=== PATIENT | male | born 1955 | race Caucasian/White ===

== ENCOUNTER 2016-07-13 07:12 | Outpatient (CLI) | payer OTHER ==
[~2016-07-13] VITALS: Ht 167.6 cm; Wt 50.0 kg
--- NOTE | ~2016-07-13 | HEMODYNAMI ---
PATIENT:MERVAT MARTINEZ MEDICAL RECORD: [id number] : 55 LOCATION:D[facility]ILIP ADMISSION DATE: 07/13/16 Generatedon:07/13/201610:30 Patient name: MERVAT MARTINEZ Patient #: [id number] : 1955 Date of study: 07/13/2016 Page: Of Hemodynamic Procedure Report Patient Data Patient Demographics Procedure consent was obtained First Name: MERVAT Gender: Male Last Name: JUAN : 1955 Patient #: [id number] Age: 60 year(s) Race: SSN: [id number] Additional ID: [id number] Contact details [address]: [address] [place] [address] ROAD State: [place] City: [place] Zip code: [address] Admission Admission Data Admission Date: 07/13/2016 Admission Time: 7:12 Arrival Date: 07/13/2016 Arrival Time: 9:30 Admit Source: Other Insurance Payor: Private health insurance Height (in.): 66 BSA: 1.55 (m2) Height (cm.): 167.64 BMI: 17.75 (kg/m2) Weight (lbs.): 110 Weight (kg.): 49.9 Lab Results Lab Result Date: 07/13/2016 Lab Result Time: 0:00 Biochemistry Name Units Result Min Max BUN mg/dl 13 --(--*-)-- 7 18 Creatinine mg/dl 0.9 --(-*--)-- 0.6 1.3 CBC Name Units Result Min Max Hemoglobin g/dl 15.7 --(--*-)-- 13.5 17.5 Procedure Procedure Types Cath Procedure Diagnostic Procedure [facility] w/Coronaries PCI Procedure Coronary Stent Initial Miscellaneous Procedures Moderate Sedation up to 45 minutes Procedure Description Procedure Date Procedure Date: 07/13/2016 Procedure Start Time: 9:59 Procedure End Time: 10:26 Procedure Staff Name Function Martin Rodriguez MD Performing Physician Ramón Gant RT Scrub Fernando Kruse RN Nurse Mayda Omer RT Monitor Procedure Data Cath Procedure Fluoroscopy Diagnostic fluoroscopy Total fluoroscopy Time: 6.9 time: 6.9 min min Diagnostic fluoroscopy Total fluoroscopy dose: 365 dose: 365 mGy mGy Contrast Material Contrast Material Type Amount (ml) Isovue 300 146 Entry Location Entry Primary Successful Side Size Upsize Upsize Entry Closure Figueroa ccessful Closure Location (Fr) 1 (Fr) 2 (Fr) Remarks Device Remarks Radial Right 6 Fr Mechanical artery Short Compression Estimated blood loss: 5 ml Diagnostic catheters Device Type Used For End Catheter Placement Terumo 5Fr Gerardo 110cm Multi-vessel catheter Angiography Procedure Complications No complications Procedure Medications Medication Administration Route Dosage Oxygen NC 2 l/min Heparin Flush Bag added to field 2 bags (1000units/500ml NS) 0.9% NaCl I.V. 100 ml/hr Radial Cocktail added to field 1 syringe (Verapomil 2mg/Nitro 400mcg/Heparin 1500units) Fentanyl I.V. 50 mcg Versed I.V. 1 mg Versed I.V. 1 mg Radial Cocktail I.A. 1 syringe (Verapomil 2mg/Nitro 400mcg/Heparin 1500units) Heparin Bolus I.V. 5000 units Plavix P.O. 600 mg Hemodynamics Rest BSA: 1.55 (m2) HGB: 15.7 (g/dl) O2 Consumption: Estimated: 180.3 (ml/min) O2 Con sumption indexed: Estimated:116.32 (ml/min/m) Heart Rate: 67 (bpm) Pressure Samples Time Site Value (mmHg) Purpose Heart Use Rate(bpm) 10:03 LV 71/-4,6 Snapshot 67 10:04 AO 64/37(46) Pullback 81 Gradients Valve Time Site Site 2 Mean SEP/DFP Peak To Heart Use 1 (mmHg) (sec/min) Peak Rate (mmHg) (bpm) Aortic 10:04 LV AO 4 44 81 64/37(46) Calculations Valve P-P Mean Valve Index Valve Source Name Gradient Area Flow (cm2) Aortic 4 4 Snapshots Pre Cath Intra NCS Post Cath Vital Signs Time Heart Resp SPO2 etCO2 [id number] NIBP Rhythm Pain Sedation Rate (ipm) (%) (mmHg) (mmHg) (mmHg) Status Level (bpm) 9:46:26 63 17 99 0 0 120/80(95) NSR 0 (11) 10(A) , No pain 9:50:32 65 17 100 0 0 91/69(79) NSR 0 (11) 10(A) , No pain 9:54:35 66 19 99 0 0 86/45(76) NSR 0 (11) 9(A) , No pain 9:58:35 72 18 99 0 0 84/52(68) NSR 0 (11) 9(A) , No pain 10:02:37 71 17 96 0 0 74/46(65) NSR 0 (11) 9(A) , No pain 10:06:36 73 18 95 0 0 69/40(57) NSR 0 (11) 9(A) , No pain 10:10:32 67 17 96 0 0 74/44(65) NSR 0 (11) 9(A) , No pain 10:14:29 68 17 95 0 0 82/43(64) NSR 0 (11) 9(A) , No pain 10:18:27 71 17 97 0 0 81/51(70) NSR 0 (11) 9(A) , No pain 10:22:22 67 18 98 0 0 90/56(66) NSR 0 (11) 9(A) , No pain 10:26:22 66 18 98 0 0 102/56(84) NSR 0 (11) 9(A) , No pain 10:28:23 67 18 98 0 0 97/59(73) NSR 0 (11) 9(A) , No pain Medications Time Medication Route Dose Verified Delivered Reason Note s Effectiveness by by 9:45:43 Oxygen NC 2 l/min Fernando King Per physician Uriah Kruse RN RN 9:45:52 Heparin Flush added 2 bags Fernando King used for Bag to Uriah Kruse RN procedure (1000units/500ml field RN NS) 9:46:03 0.9% NaCl I.V. 100 Fernando King Per physician ml/hr Uriah Kruse RN RN 9:46:16 Radial Cocktail added 1 Fernando King used for (Verapomil to syringe Uriah Kruse technical service representative 2mg/Nitro field RN 400mcg/Heparin 1500units) 9:52:27 Fentanyl I.V. 50 mcg Fernando King for sedation Uriah Kruse RN RN 9:52:34 Versed I.V. 1 mg Fernando King for sedation Uriah Kruse RN RN 10:00:58 Versed I.V. 1 mg Fernando King for sedation Uriah Kruse RN RN 10:01:54 Radial Cocktail I.A. 1 Fernando Salazar for (Verapomil syringe Uriah Rodriguez MD vasodilation 2mg/Nitro RN 400mcg/Heparin 1500units) 10:10:33 Heparin Bolus I.V. 5000 Fernando King for units Uriah Kruse RN anticoagulation RN 10:25:20 Plavix P.O. 600 mg Fernando King for Uriah Kruse RN antiplatelet RN therapy Procedure Log Time Note 9:30:55 Fernando Kruse RN sent for patient. Start room use. 9:40:17 Informed consent obtained and on chart 9:40:38 Diagnostic Cath Status : Elective 9:41:02 Time tracking: Regular hours 9:41:06 Plan of Care:Hemodynamics will remain stable., Cardiac rhythm will remain stable., Comfort level will be maintained., Respiratory function will remain adequate., Patient/ family verbilizes understanding of procedure., Procedure tolerated without complication., Recovers from procedure without complications.. 9:41:11 Patient received from Pre/Post Procedure Room to [facility] 1 Alert and oriented. Tansferred to table in Supine position. 9:41:11 Warm blankets applied, and lilia hugger turned on for patient comfort. 9:41:12 Correct patient and procedure confirmed by team. 9:41:12 ECG and BP/O2 sat monitors applied to patient. 9:45:18 Vital chart was started 9:45:43 Oxygen 2 l/min NC was administered by Fernando Kruse RN; Per physician; 9:45:52 Heparin Flush Bag (1000units/500ml NS) 2 bags added to field was administered by Fernando Kruse RN; used for procedure; 9:46:01 Rhythm: sinus rhythm 9:46:03 0.9% NaCl 100 ml/hr I.V. was administered by Fernando Kruse RN; Per physician; 9:46:03 Full Disclosure recording started 9:46:16 Radial Cocktail (Verapomil 2mg/Nitro 400mcg/Heparin 1500units) 1 syringe added to field was administered by Fernando Kruse RN; used for procedure; 9:46:34 H&P Date Dictated: 07/08/2016 Within 30 days and on chart., H&P Addendum completed by physician on day of procedure. (MUST COMPLETE FOR ALL OUTPATIENTS). 9:46:35 Pre-procedure instructions explained to patient. 9:46:35 Pre-op teaching completed and patient verbalized understanding. 9:46:36 Family in waiting room. 9:46:38 Patient NPO since Midnight. 9:46:39 Is the patient allergic to Iodine/contrast media? No. 9:46:40 Is patient on blood thinner?No 9:46:42 Patient diabetic? No. 9:46:44 Previous problem with sedation/anesthesia? No ? 9:46:45 Snore? Yes 9:46:46 Sleep apnea? No 9:46:47 Deviated septum? No 9:46:48 Opens mouth fully? Yes 9:46:49 Sticks out tongue? Yes 9:46:50 Airway obstruction? No ? 9:46:52 Dentures? No ? 9:46:54 Pre procedure: right dorsailis pedis pulse 1+ Palpable, but thready & weak; easily obliterated 9:46:58 Modified Rishi's test Ulnar < 7 seconds 9:47:01 Patient pain scale 0/10 ?. 9:47:05 IV patent on arrival in left forearm with 0.9% NaCl at O. 9:47:08 Lab results completed and on chart. 9:47:11 Right Radial & Right Groin area was prepped with chlora-prep and draped in sterile fashion 9:47:12 Alarms reviewed by R. N. 9:47:12 Sharps counted by scrub and verified by R.N. 9:51:32 Physician arrived 9:51:33 --------ALL STOP TIME OUT------ 9:51:33 Final Timeout: patient, procedure, and site verified with staff and physician. All members of the team are in agreement. 9:51:45 Right Radial & Left Groin site verified by team. 9:51:48 Physical assessment completed. ASA score P 2 - A patient with mild systemic disease as per aMrtin Rodriguez MD. 9:51:52 Sedation plan: IV Moderate Sedation Versed, Fentanyl 9:52:27 Fentanyl 50 mcg I.V. was administered by Fernando Kruse RN; for sedation; 9:52:34 Versed 1 mg I.V. was administered by Fernando Kruse RN; for sedation; 9:52:37 Cook 21G 4cm Radial Needle opened to sterile field. 9:52:40 Use device set Radial Dx 9:52:42 Acist Syringe opened to sterile field. 9:52:42 Medline Cath Pack opened to sterile field. 9:52:42 Bag Decanter opened to sterile field. 9:52:43 Terumo 6Fr Slender Glidesheath opened to sterile field. 9:52:43 St Ronnie 260cm J .035 wire opened to sterile field. 9:52:43 Acist Hand Control opened to sterile field. 9:52:44 Acist Manifold opened to sterile field. 9:52:44 Tegaderm 4 x 4 opened to sterile field. 9:52:44 MBrace Wrist Support opened to sterile field. 9:52:55 Admit Source: Other 9::59 Arrival Date: 07/13/2016 9:30:00 AM 9:53:21 Insurance Payor : Private health insurance 9:54:01 Patient Height : 66 cm 9:54:06 Patient Weight : 110 kg 9:56:41 Lab Result : Hemoglobin 15.7 g/dl 9:56:41 Lab Result : Creatinine 0.9 mg/dl 9:56:41 Lab Result : BUN 13 mg/dl 9:59:40 Procedure started. 9:59:51 Local anesthetic to right radial artery with Lidocaine 2% by Martin Rodriguez MD.INITIAL ACCESS ONLY 10:00:14 Zero performed for pressure channel P1 10:00:58 Versed 1 mg I.V. was administered by Fernando Kruse RN; for sedation; 10:01:07 A 6 Fr Short sheath was inserted into the Right Radial artery 10:01:23 Baseline sample Acquired. 10:01:54 Radial Cocktail (Verapomil 2mg/Nitro 400mcg/Heparin 1500units) 1 syringe I.A. was administered by Martin Rodriguez MD; for vasodilation; 10:02:49 A Terumo 5Fr Gerardo 110cm catheter was advanced over the wire and used for Multi-vessel Angiography. 10:03:40 LV hemodynamics recorded. 10:03:42 LV gram done using MILES 10:03:44 Injector settings: Ml/sec: 5, Volume: 15, 10:03:54 EF : 60 % 10:04:16 RCA angiography performed. 10:04:23 Injector settings: Ml/sec: 3, Volume: 6, 10:04:55 LCA angiography performed. 10:05:17 Injector settings: Ml/sec: 3, Volume: 6, 10:05:59 Catheter removed. 10:06:18 TabletKiosk 6FR XBLAD 3.5 guide catheter opened to sterile field. 10:06:18 [employer] BMW [place] 2 J-tip 300cm 0.014 guide wir opened to sterile field. 10:06:19 VeliQ BasixCompak Inflation Kit opened to sterile field. 10:06:25 High Pressure Extension Tubing ([place]) opened to sterile field. 10:06:28 Proceeding to intervention. 10:06:40 6 Fr xblad 3.5 guide catheter was inserted over the wire 10:09:17 bmw wire advanced. 10:10:33 Heparin Bolus 5000 units I.V. was administered by Fernando Kruse RN; for anticoagulation; 10:11:42 Wire advanced across lesion. 10:14:46 Inflation Number: 1 A Medtronic Integrity 2.75 X 18 stent was prepped and advanced across the Mid LAD. The stent was deployed at 14 ADRIA for 0:10 (min:sec). 10:17:22 Stent catheter was removed intact over wire. 10:19:16 Inflation Number: 2 A Medtronic Integrity 3.0 X 12 stent was prepped and advanced across the Mid LAD. The stent was deployed at 12 ADRIA for 0:10 (min:sec). 10:22:31 Inflation number: 3 The stent balloon was then re-inflated across the Mid LAD to 3 ADRIA for 0:10 (min:sec). 10:22:37 Stent catheter was removed intact over wire. 10:22:38 Wire removed. 10:22:38 Guide catheter removed. 10:22:52 Terumo TR Band Standard opened to sterile field. 10:23:10 Sheath removed intact; hemostasis achieved with Mechanical Compression to the Right Radial artery. 10:23:11 TR band inflated with 12cc of air. 10:23:12 Procedure ended.(Physican Out) 10:24:20 Fluoroscopy time 06.90 minutes. 10:24:42 Fluoroscopy dose: 365 mGy 10:24:42 Flurop Dose total: 365 10:24:51 Contrast amount:Isovue 300 146ml. 10:24:53 Sharps counted by scrub and verified by R.N. 10:24:54 Insertion/operative site no bleeding no hematoma. 10:25:00 Post right radial artery:stable 10:25:02 Post Procedure Pulses reassessed and unchanged 10:25:20 Plavix 600 mg P.O. was administered by Fernando Kruse RN; for antiplatelet therapy; 10:25:21 Post procedure rhythm: unchanged. 10:25:24 Estimated blood loss: 5 ml 10:25:26 Post procedure instruction explained to patient.Patient verbalizes understanding. 10:25:27 Patient needs reinforcement of post procedure teaching. 10:26:06 Procedure type changed to Cath procedure, Diagnostic procedure, LHC, LHC w/Coronaries, PCI procedure, Coronary Stent Initial, Miscellaneous Procedures, Moderate Sedation up to 45 minutes 10:26:07 Procedure and supply charges have been captured, reviewed, submitted and are correct. 10:26:11 Procedure Complication : No complications 10:26:13 Vital chart was stopped 10:26:14 See physician's report for complete and final results. 10:26:19 Report given to Pre/Post Procedure Room. 10:26:22 Patient transfered to Pre/Post Procedure Room with Stretcher. 10:26:24 Procedure ended. 10:26:24 Full Disclosure recording stopped 10:26:33 ACC-PCI Only Patient was given prescriptions, or instructed by Martin Rodriguez MD to start/continue the following medications upon discharge: Plavix 10:26:35 End room use (Document Last) Intervention Summary Intervention Notes Time ActionType Lesion and Equipment Action# Pressure Duration Attributes Used 10:14:46 Place stent Mid LAD Medtronic 1 14 00:10 Integrity 2.75 X 18 stent 10:19:16 Place stent Mid LAD Medtronic 2 12 00:10 Integrity 3.0 X 12 stent 10:22:31 Reinflate Mid LAD Medtronic 3 3 00:10 stent Integrity balloon 3.0 X 12 stent Device Usage Item Name Manufacture Quantity Catalog Hospital Part Current Minimal Lot# / Number Charge Number Stock Stock Serial# Code Freshplum 21G Firecomms 1 [id number] [id number] 457440 5 4cm Radial Needle Acist Acist 1 06086 419058 770101 581994 20 Syringe Medical Systems Inc Medline Cardinal 1 [id number] 191052 96023 405652 5 Cath Pack Health Bag Microtek 1 2002S 575507 41618 125554 5 Decanter Medical Inc. Terumo 6Fr Terumo 1 [id number] 523329 967853 194750 [address] St Ronnie 1 [id number] 149106 595963 473889 30 260cm J .035 wire Acist Hand Acist 1 12301 448753 018908 147127 5 Control Medical Systems Inc Acist Acist 1 68015 358543 736451 386579 5 Manifold Medical Systems Inc Tegaderm 4 3M 1 1626W 968204 230809 306055 5 x 4 MBrace Advanced 1 140-0250-00 446016 79412 589421 5 Wrist Vascular Support Dynamics Terumo 5Fr Terumo 1 89-5303 093601 248292 435199 5 Gerardo 110cm catheter Cordis 6FR Cardinal 1 [id number] 844300 306950 787404 10 XBLAD 3.5 Health guide catheter Neal BMW Neal 1 [id number] 139622 319937 780386 5 [place] 2 Vascular J-tip 300cm 0.014 guide wir Merit Merit 1 [id number] 946191 257381 812921 15 BasixLiquidPistonk Medical Inflation Kit High Merit 1 [id number] 301528 04646 752309 10 Pressure Medical Extension Tubing (Rodriguez) Medtronic Medtronic 1 [id number] 635225 668210 6 [id number] Integrity 2.75 X 18 stent Medtronic Medtronic 1 [id number] 813626 408778 8 [id number] Integrity 3.0 X 12 stent Terumo TR Terumo 1 [id number] 068986 757419 520659 40 Band Standard Signature Audit [place] Stage Time Signature Unsigned Intra-Procedure 07/13/2016 Mayda Omer 10:30:23 AM RT(R) Signatures Monitor : Mayda Omer RT Signature : Date : Time : [facility] [address] [place] [address]
--- NOTE | ~2016-07-13 | OP ---
PATIENT NAME: MERVAT MARTINEZ MEDICAL RECORD: [id number] :55 LOCATION:D.CAT ADMISSION DATE: SURGEON: ERIK GEE M.D. DATE OF OPERATION: 07/13/2016 PROCEDURES PERFORMED: 1. Selective coronary angiography. 2. Left heart catheterization with ventriculogram. 3. PTCA and stent placed in the LAD. INDICATION: A 60-year-old gentleman who presents with symptoms of unstable angina. REFERRING PHYSICIAN: Cheyenne Acosta MD. EQUIPMENT USED: A 5-Danish Gerardo catheter. INTERVENTION: A 6-Danish XB LAD guide, BMW guide wire, 3.0 x 12 mm Integrity stent, 2.75 x 18 mm Integrity stent. TECHNIQUE: A 6-Danish sheath was inserted in retrograde fashion in the right radial artery. Next, selective coronary angiography was performed in standard views using 5-Danish Gerardo catheter. Left heart catheterization was performed using Gerardo catheter as well. CORONARY ANATOMY: 1. Left main: Left main trunk is large in caliber. It gives rise to the LAD and circumflex. There is no obstruction. 2. LAD: This is a large caliber vessel extending to the apex. In the proximal segment beyond the first septal investment underwriter, there is an ulcerated 80% stenosis, which is quite hazy. 3. Circumflex: This vessel is large in caliber. The mid segment has a smooth 30% stenosis. 4. Right coronary: This vessel is large in caliber and dominant. It is angiographically normal. 5. Left ventricle: Left ventricle is normal size and function. No wall motion abnormalities are seen. Estimated ejection fraction is 60%. DESCRIPTION OF INTERVENTION: A 100 units per kilogram of heparin was infused. A 6-Danish XB LAD guide was advanced and engaged in the left main coronary artery. Next, a BMW guide wire was placed in the distal segment. A 2.75 x 18 mm Integrity stent was placed across the stenosis and deployed at 12 atmospheres. Injection shows stent to be widely patent with 0% residual stenosis; however, in the proximal stent, there appeared to be an edge dissection. At this point, a 3.0 x 12 mm Integrity stent was placed proximal to the existing stent. This stent was deployed at 12 atmospheres as well. Injection revealed both stents to be widely patent with 0% residual stenosis. There is marked improvement in distal flow. At this point, the wire and guide were removed. IMPRESSION: Successful percutaneous transluminal coronary angioplasty and stent in the LAD with 0% residual stenosis. TRANSINT:[id number] Voice Confirmation ID: [id number] DOCUMENT ID: [id number] OPERATIVE REPORT [id number] MERVAT MARTINEZ TIMOTHY E M.D. CC: [id number] DICTATION DATE: 07/13/16 103 FRETTED INSTRUMENT REPAIRER: 07/13/162053 DEP CLI 07/13/16 [facility] [address] [id number]
[~2016-07-13 07:12] MED LIST: FLOMAX0.4 MG PO; ZESTORETIC 20-1 EACH PO
[2016-07-13] MEDS ORDERED: MOBIC7.5 MG PO (07:52)
[2016-07-13] MEDS ORDERED: PROSCAR5 MG PO (07:52)
[2016-07-13 07:58] VITALS: BP 139/87; Ht 167.6 cm; Wt 50.0 kg
[2016-07-13 08:08] LABS: BASOPHILS 0.4 % (0-2); EOSINOPHILS 3.7 % (0-7); HEMATOCRIT 45.1 % (42.0-54.0); HEMOGLOBIN 15.7 g/dL (13.5-17.5); IMMATURE GRANULOCYTES 0.1 % (0-5); LYMPHOCYTES 16.6 % (15-50); MCH 32.3 pg (26.0-34.0); MCHC 34.8 g/dL (31.0-37.0); MCV 92.8 fL (80.0-100.0); NEUTROPHILS 71.2 % (40-80); PLATELET COUNT 233 10x3/uL (130-400); RBC 4.86 10x6/uL (4.20-6.10); RDW 13.5 % (11.5-14.5); WBC 13.7 10x3/uL (4.8-10.8)
[2016-07-13 08:34] LABS: CALC OSMOLALITY 275 mosm/kg (275-300); CALCIUM 8.9 mg/dL (8.5-10.1); CARBON DIOXIDE 28.8 mmol/L (21.0-32.0); CHLORIDE - SERUM 102 mmol/L (98-107); CREATININE - SERUM 0.9 mg/dL (0.6-1.3); GLUCOSE 100 mg/dL (74-106); SODIUM 138 mmol/L (136-145); UREA NITROGEN 13 mg/dL (7-18); eGFR NON AFRICAN AMERICAN > 90 mL/min (90-120)
--- NOTE | 2016-07-13 10:42 | NUR ---
1042 RECIEVED TO ROOM VIA STRETCHER FROM LATHE TURNER WITH TR BAND TO R/WRIST CDI NO BLEEDING NO HEMATOMA NOTED. CHEST PAIN IS DENIED SB RATE 58 INSTRUCTED PATIENT TO KEEP RUE STRAIGHT NO BENDING OR FLEXING OF WRIST 1115 SITTING WITH HOB UP 30 DEGREES SANDWICH AND SODA PROVIDED. PATIENT DENIED CHEST PAIN 1145 NO CHANGE IN ASSESSMENT TR BAND R/WRIST CDI NO BLEEDING NO HEMATOMA NOTED WILL MONITOR 1230 VSS WITH CHEST PAIN DENIED NO DISTRESS NOTED. TR BAND REMAINS TO R/WRIST CDI NO BLEEDING NO HEMATOMA NOTED
[2016-07-13] MEDS ORDERED: BAYER CHEWABLE81 MG PO (10:49)
[2016-07-13] MEDS ORDERED: PLAVIX75 MG PO (10:49)
--- NOTE | 2016-07-13 13:30 | NUR ---
CHEST PAIN DENIED WITH VSS TR BAND REMAINS CDI NO BLEEDING NO HEMATOMA NOTED.
--- NOTE | 2016-07-13 14:14 | NUR ---
3 CC AIR REMOVED FROM TR BAND NO BLEEDING NO HEMATOMA NOTED. CHEST PAIN IS DENIED VSS
--- NOTE | 2016-07-13 14:23 | NUR ---
3 CC AIR REMOVED FROM TR BAND WITH NO BLEEDING AT SITE
--- NOTE | 2016-07-13 14:37 | NUR ---
3 CC AIR REMOVED FROM TR BAND WITH NO BLEEDING NO HEMATOMA NOTED CHEST PAIN IS DENIED. PIV REMOVED FROM LEFT ARM WITH DRESSING APPLIED PATIENT UP TO GET DRESSED FOR DISCHARGE HOME
--- NOTE | 2016-07-13 15:02 | NUR ---
VERBAL AND WRITTEN DISCHARGE GONE OVER WITH PATIENT AND BOTH VERBALIZE UNDERSTANDING. TR BAND REMOVED WITH DRESSING APPLIED. NO BLEEDING NO HEMATOMA NOTED. PATIENT LEFT VIA WC TO PARKING FOR TO DRIVE HOME CHEST PAIN IS DENIED
== END 2016-07-13 15:06 | disposition home or self-care (01) ==
LOC: D.CATH 07:12
PROVIDERS: Internal Medicine Cardiovascular Disease
DX: I25.110 Atherosclerotic heart disease of native coronary artery with unstable angina pectoris (principal)

== ENCOUNTER 2018-04-28 14:40 | Inpatient (IN) | payer BC ==
[~2018-04-28] VITALS: Ht 167.6 cm; Wt 45.0 kg
[~2018-04-28 14:40] MED LIST changes: +BAYER CHEWABLE81 MG PO; +MOBIC7.5 MG PO; +PLAVIX75 MG PO; +PROSCAR5 MG PO
[2018-04-28 15:33] LABS: BASOPHILS 0.1 % (0-2); EOSINOPHILS 0.1 % (0-7); HEMATOCRIT 39.2 % (42.0-54.0); HEMOGLOBIN 15.2 g/dL (13.5-17.5); IMMATURE GRANULOCYTES 0.5 % (0-5); LYMPHOCYTES 3.5 % (15-50); MCH 32.2 pg (26.0-34.0); MCHC 38.8 g/dL (31.0-37.0); MCV 83.1 fL (80.0-100.0); MEAN PLATELET VOLUME 12.7 fL (7.4-10.4); MONOCYTES 7.7 % (2-11); NEUTROPHILS 88.1 % (40-80); PLATELET COUNT 204 10x3/uL (130-400); RBC 4.72 10x6/uL (4.20-6.10); RDW 12.2 % (11.5-14.5)
[2018-04-28 15:41] LABS: INR 0.94 (0.85-1.17)
[2018-04-28 15:45] LABS: D-DIMER-QUANTITATIVE 1.95 ug/mLFEU (0.20-0.54)
[2018-04-28 16:02] LABS: ALBUMIN 2.8 g/dL (3.4-5.0); ALKALINE PHOSPHATASE 78 U/L (46-116); ALT (SGPT) 53 U/L (10-68); BILIRUBIN - TOTAL 0.93 mg/dL (0.2-1.3); C-REACTIVE PROTEIN 5.7 mg/dL (0.0-0.9); CALCIUM 7.7 mg/dL (8.5-10.1); CARBON DIOXIDE 27.7 mmol/L (21.0-32.0); CKMB 5.5 U/L (0.0-3.6); CREATININE - SERUM 0.7 mg/dL (0.6-1.3); GLUCOSE 155 mg/dL (74-106); PRO BNP 127 pg/mL (0-125); PROTEIN - SERUM 6.4 g/dL (6.4-8.2); UREA NITROGEN 13 mg/dL (7-18); eGFR NON AFRICAN AMERICAN > 90 mL/min (90-120)
[2018-04-28 16:05] LABS: CALC OSMOLALITY 233 mosm/kg (275-300); CHLORIDE - SERUM 76 mmol/L (98-107); CREATINE KINASE 3075 UL (21-232); POTASSIUM - SERUM 2.7 mmol/L (3.5-5.1); SODIUM 114 mmol/L (136-145); TROPONIN-I < 0.017 ng/mL (0.000-0.060)
[2018-04-28 17:03] VITALS: BP 121/69
--- NOTE | 2018-04-28 19:20 | NUR ---
RECEIVED PT FROM ER VIA W/C. ALERT AND ORIENTED X4. AMBULATORY. GEN WEAKNESS NOTED. O2 @ 3L/NC. SOB WITH MIN EXERTION. RESP IRREG. BBS CTA WITH RHONCHI NOTED TO LT LOBES. NON PROD COUGH NOTED. PT PLACED IN DROPLET ISOLATION FOR DIAGNOSIS OF FLU THIS PAST MONDAY. NS @ 125 ML/HR INFUSING IN LT FOREARM WITHOUT DIFF. NO ACUTE DISTRESS. V/S STABLE. SR ELEVATED X2. CL IN REACH.
[2018-04-28] MEDS ORDERED: NEXIUM20 MG PO (19:46)
[2018-04-28] MEDS ORDERED: VITAMIN D5000 UNIT PO (19:46)
[2018-04-28 20:00] VITALS: BP 120/78
[2018-04-28 23:27] VITALS: BP 120/78; BMI 17.4
--- NOTE | 2018-04-28 23:38 | NUR ---
HAS BEEN RESTING WELL SO FAR. TELEMETRY SHOWS SR WITH RATE OF 75. CL IN REACH.
[2018-04-29] VITALS: BP 106/65
--- NOTE | 2018-04-29 03:05 | NUR ---
RESTING IN BED WITH EYES CLOSED. RESP EVEN AND NONLABORED. O2 @ 3L/NC. NO DISTRESS. CL IN REACH.
[2018-04-29 04:00] VITALS: BP 127/79
[2018-04-29 04:27] LABS: APPEARANCE CLEAR (CLEAR); BILIRUBIN NEGATIVE (NEGATIVE); COLOR YELLOW (YELLOW); GLUCOSE NEGATIVE (NEGATIVE); KETONE SMALL mg/dL (NEGATIVE); NITRITE NEGATIVE (NEGATIVE); PROTEIN NEGATIVE (NEGATIVE); UROBILINOGEN NORMAL (NORMAL)
[2018-04-29 07:16] LABS: ALBUMIN 2.2 g/dL (3.4-5.0); ALKALINE PHOSPHATASE 51 U/L (46-116); ALT (SGPT) 43 U/L (10-68); BILIRUBIN - TOTAL 0.55 mg/dL (0.2-1.3); CALCIUM 7.3 mg/dL (8.5-10.1); CARBON DIOXIDE 26.4 mmol/L (21.0-32.0); CHLORIDE - SERUM 90 mmol/L (98-107); CREATININE - SERUM 0.6 mg/dL (0.6-1.3); GLUCOSE 146 mg/dL (74-106); PROTEIN - SERUM 5.1 g/dL (6.4-8.2); SODIUM 125 mmol/L (136-145); eGFR NON AFRICAN AMERICAN > 90 mL/min (90-120)
[2018-04-29 07:21] LABS: CALC OSMOLALITY 252 mosm/kg (275-300); HEMATOCRIT 31.9 % (42.0-54.0); MCH 31.7 pg (26.0-34.0); MCHC 37.6 g/dL (31.0-37.0); MCV 84.4 fL (80.0-100.0); MEAN PLATELET VOLUME 12.3 fL (7.4-10.4); PLATELET COUNT 189 10x3/uL (130-400); POTASSIUM - SERUM 3.8 mmol/L (3.5-5.1); RBC 3.78 10x6/uL (4.20-6.10); RDW 12.6 % (11.5-14.5); UREA NITROGEN 7 mg/dL (7-18); WBC 20.3 10x3/uL (4.8-10.8)
--- NOTE | 2018-04-29 07:40 | NUR ---
PT AAOX4 RESP EVEN AND NONLABORED, NO NEEDS EXPRESSED AT THIS TIME, CL IN REACH WILL CONTINUE TO MONITOR
[2018-04-29 08:30] VITALS: BP 113/71
[2018-04-29 09:11] LABS: MONOCYTES 6 % (2-11); NEUTROPHILS 82 % (40-80); PLATELET ESTIMATE NORMAL
[2018-04-29 09:12] LABS: CRENATED CELLS 2+
[2018-04-29 12:43] VITALS: BP 112/89
[2018-04-29 16:36] VITALS: BP 116/74
--- NOTE | 2018-04-29 19:45 | NUR ---
LYING IN BED. ALERT AND ORIENTED X4. STATES HE IS FEELING SOME BETTER. RESP NONLABORED. BBS EXP WHEEZES IN BLL. O2 @ 3L/NC. DROPLET ISO FOR FLU. TELEMETRY SHOWS SR WITH RATE OF 79. NONPROD LOOSE COUGH NOTED. DENIES PAIN. AMBULATORY. NO DISTRESS. NS @ 125 ML/HR INFUSING IN LT FOREARM WITHOUT DIFF. SR ELEVATED X2. CL IN REACH.
[2018-04-29 20:38] VITALS: BP 111/72
[2018-04-30 00:42] VITALS: BP 115/69
--- NOTE | 2018-04-30 00:53 | NUR ---
HAS RESTED WELL SO FAR THIS SHIFT. NO DISTRESS. CL IN REACH.
--- NOTE | 2018-04-30 04:45 | NUR ---
WELCOME WAGON HOSTESS CHECKING V/S NOTIFIED THIS INSIDE SALES MANAGER THAT SAO2 WAS 70'S-80'S. O2 @ 4L/NC. NOTIFIED RT. INCREASED O2 TO 7L/HFC. ENCOURAGED PT TO BREATHE IN THROUGH HIS NOSE INSTEAD OF MOUTH BREATHING. NASAL CONGESTION IS NOTED. PT ALERT AND ORIENTED. RESP ARE NONLABORED. RR 20. UD GIVEN AT THIS TIME. SAO2 IS NOW 92-93%. WILL CONT TO MONITOR CLOSELY. WILL LEAVE SAO2 MONITOR ON. CL IN REACH.
[2018-04-30 05:07] VITALS: BP 132/78
--- NOTE | 2018-04-30 06:00 | NUR ---
SITTING UP IN BED. ALERT AND TALKATIVE. NONPROD COUGH NOTED. SAO2 93%. NO ACUTE DISTRESS. O2 @ 7L/HFC. CL IN REACH.
[2018-04-30 06:12] LABS: ALBUMIN 2.1 g/dL (3.4-5.0); ALKALINE PHOSPHATASE 61 U/L (46-116); ALT (SGPT) 37 U/L (10-68); BILIRUBIN - TOTAL 0.51 mg/dL (0.2-1.3); CALC OSMOLALITY 266 mosm/kg (275-300); CALCIUM 7.4 mg/dL (8.5-10.1); CARBON DIOXIDE 25.1 mmol/L (21.0-32.0); CHLORIDE - SERUM 97 mmol/L (98-107); CREATININE - SERUM 0.7 mg/dL (0.6-1.3); GLUCOSE 146 mg/dL (74-106); PROTEIN - SERUM 5.1 g/dL (6.4-8.2); SODIUM 133 mmol/L (136-145); UREA NITROGEN 6 mg/dL (7-18); eGFR NON AFRICAN AMERICAN > 90 mL/min (90-120)
[2018-04-30 06:13] LABS: POTASSIUM - SERUM 3.2 mmol/L (3.5-5.1)
[2018-04-30 07:01] LABS: HEMATOCRIT 31.6 % (42.0-54.0); HEMOGLOBIN 11.6 g/dL (13.5-17.5); MCH 31.5 pg (26.0-34.0); MCHC 36.7 g/dL (31.0-37.0); MCV 85.9 fL (80.0-100.0); MEAN PLATELET VOLUME 12.5 fL (7.4-10.4); PLATELET COUNT 234 10x3/uL (130-400); RBC 3.68 10x6/uL (4.20-6.10); RDW 13.2 % (11.5-14.5); WBC 32.8 10x3/uL (4.8-10.8)
[2018-04-30 08:20] VITALS: BP 134/79
[2018-04-30 09:11] LABS: LYMPHOCYTES 6 % (15-50); MONOCYTES 5 % (2-11); NEUTROPHILS 81 % (40-80); PLATELET ESTIMATE NORMAL
[2018-04-30 09:12] LABS: ANISOCYTOSIS OCC; CRENATED CELLS OCC
--- NOTE | 2018-04-30 09:55 | NUR ---
PT SITTING UP IN BED. RESPIRATIONS SHALLOW, UNLABORED. O2 SAT 90% WITH O2 @ 7L HIFLO NC. ASYMPTOMATIC. DENIES PAIN. IV TO LEFT FOREARM WITH NS @ 125ML/HR INFUSING VIA PUMP. SITE WITHOUT REDNESS OR EDEMA. DENIES FURTHER NEEDS A THIS TIME. CL WITHIN REACH. ENOCURAGED TO CALL WITH NEEDS. CONTINUE POC
[2018-04-30 12:30] VITALS: BP 127/83
[2018-04-30 13:08] VITALS: Ht 167.6 cm; Wt 45.0 kg
[2018-04-30 15:41] LABS: BASOPHILS 0.1 % (0-2); EOSINOPHILS 0 % (0-7); HEMATOCRIT 31.5 % (42.0-54.0); HEMOGLOBIN 11.3 g/dL (13.5-17.5); LYMPHOCYTES 2.7 % (15-50); MCH 31.1 pg (26.0-34.0); MCHC 35.9 g/dL (31.0-37.0); MCV 86.8 fL (80.0-100.0); MONOCYTES 1.9 % (2-11); NEUTROPHILS 94.3 % (40-80); PLATELET COUNT 230 10x3/uL (130-400); RBC 3.63 10x6/uL (4.20-6.10); RDW 13.3 % (11.5-14.5); WBC 33.9 10x3/uL (4.8-10.8)
--- NOTE | 2018-04-30 17:00 | NUR ---
OT NOTE: PT COMPLETED BED MOB TASKS WITH MIN A. PT COMPLETED GROOMING AND HYGIENE TASKS WITH MIN A. THANK YOU, ROCKY CASTILLO
[2018-04-30 17:53] VITALS: BP 134/78
--- NOTE | 2018-04-30 19:45 | NUR ---
PT SITTING UP IN BED, NO SIGNS OF DISTRESS. ALERT AND ORIENTED. DROPLET ISO IN PLACE. O2 7L/HFNC. IV LEFT FA INFUSING NS @ 100. HR 70S SR PER TELE. LOWER LOBES DIMINISHED. STATES NO NEEDS AT THIS TIME. CL IN REACH, WILL CONT TO MONITOR
[2018-04-30 20:00] VITALS: BP 138/79
--- NOTE | 2018-04-30 20:30 | NUR ---
CALLED ROOM BY PT. PT SOB W/ RETRACTIONS. RESP 24. O2 SAT 64%. PAGED RESP, O2 INCREASED TO 14L/HFNC TO KEEP PT SAT 92%. PT CALMED, BREATHING SLOW AND EVEN. VSS. LOWER LOBES DIMINISHED. WILL CONTINUE TO MONITOR
[2018-05-01] VITALS (16 sets, daily range): BP systolic 108–167; BP diastolic 67–98
--- NOTE | 2018-05-01 00:30 | NUR ---
RAPID RESPONSE CALLED. PT O2 54% UPON ENTERING ROOM. RESP 25 W/ RETRACTIONS. HR 90S PER TELE. BP 190/100. PT PLACED ON 100% NON REBREATHER TO BRING O2 92%. PT BREATHING SLOWED, RESP 19. HR 95. 02 94%. TEMP 97.4. BP 161/99. DR ALEJO CALLED AND NOTIFIED. ABGS OBTAINED. PT PLACED ON VAPOTHERM. VSS. WILL CONTINUE TO MONITOR
[2018-05-01 07:11] LABS: ALBUMIN 1.9 g/dL (3.4-5.0); ALKALINE PHOSPHATASE 61 U/L (46-116); ALT (SGPT) 35 U/L (10-68); CALCIUM 7.5 mg/dL (8.5-10.1); CARBON DIOXIDE 30.2 mmol/L (21.0-32.0); CHLORIDE - SERUM 99 mmol/L (98-107); GLUCOSE 140 mg/dL (74-106); PROTEIN - SERUM 4.9 g/dL (6.4-8.2); SODIUM 134 mmol/L (136-145)
[2018-05-01 07:16] LABS: CALC OSMOLALITY 268 mosm/kg (275-300); CREATININE - SERUM 0.5 mg/dL (0.6-1.3); UREA NITROGEN 11 mg/dL (7-18); eGFR NON AFRICAN AMERICAN > 90 mL/min (90-120)
[2018-05-01 07:27] LABS: HEMATOCRIT 30.4 % (42.0-54.0); HEMOGLOBIN 11.2 g/dL (13.5-17.5); MCH 31.9 pg (26.0-34.0); MCHC 36.8 g/dL (31.0-37.0); MCV 86.6 fL (80.0-100.0); MEAN PLATELET VOLUME 11.8 fL (7.4-10.4); PLATELET COUNT 231 10x3/uL (130-400); RBC 3.51 10x6/uL (4.20-6.10); RDW 13.4 % (11.5-14.5); WBC 29.8 10x3/uL (4.8-10.8)
--- NOTE | 2018-05-01 08:00 | NUR ---
PT AAOX4 RESP EVEN AND NONLABORED, NO SIGNS OF DISTRESS NOTED, CL IN REACH WILL CONTINUE TO MONITOR
[2018-05-01 09:28] LABS: LYMPHOCYTES 4 % (15-50); MONOCYTES 12 % (2-11); NEUTROPHILS 72 % (40-80); PLATELET ESTIMATE NORMAL
--- NOTE | 2018-05-01 11:35 | NUR ---
ANSWERED PT CALL LIGHT, PT IS IN ROOM SHAKING BP ELEVATED, PT STATES "I FEEL LIKE I AM HAVING A PANIC ATTACK, CAN I HAVE SOMETHING TO CALM ME DOWN AND RELAX ME" I EXPRESSED TO PT THAT I WOULD CHECK AND SEE IF HE HAD ANYTHING ORDERED THAT HE COULD HAVE, I CHECKED EMAR AND PT CAN HAVE 1MG OF ATIVAN FOR DT'S PRN PT STATES "HE DRINKS A 30PACK OF BEERS EVERY OTHER DAY AND HAS NOT HAD A DRINK IN ABOUT 2WEEKS NOW" PT ALSO HAS A HISTORY OF SMOKING
--- NOTE | 2018-05-01 11:38 | NUR ---
OT NOTE: RAPID RESPONSE APPARENTLY CALLED EARLIER TODAY WITH REPORTS OF 02 SATS IN 50s. PT SEEN LATER THIS AM. SITTING UP IN BED. SATS AT 93%. NO PROBLEMS REPORTED. PROVIDED PT WITH WASH CLOTH FOR HANDS AND FACE..ALSO FRESH WATER. PT STATED THAT HE WAS FEELING MUCH BETTER. WILL ASSESS THIS AFTERNOON IN REGARDS TO ANY EXS OR MOBILITY. CHASE BRIZUELA, OTR/L
--- NOTE | 2018-05-01 12:40 | NUR ---
PT TRANSFERED FROM FLOOR TO ICU. PT ASSISTED TO ICU BED, MONITORS HOOKED UP AND WORKING, PT AWAKE AND ALERT, ON 40L VAPOTHERM, VITALS STABLE, CALL LIGHT WITHIN REACH, WILL CONTINUE TO OBSERVE.
--- NOTE | 2018-05-01 13:30 | NUR ---
DR. ALEOJ AND ISA AT BEDSIDE
--- NOTE | 2018-05-01 15:00 | NUR ---
PT PULLED OFF O2, EXPLAINED IMPORTANCE OF LEAVING O2 ON
--- NOTE | 2018-05-01 17:00 | NUR ---
PT RESTING AT THIS TIME, WILL CON'T TO MONITOR
--- NOTE | 2018-05-01 17:38 | MORECARE ---
CASE MANAGEMENT DISCHARGE SUMMARY PATIENT: MERVAT MARTINEZ UNIT: [id number] ADM DATE: 04/28/18 AGE: 62 : 55 SEX: M ROOM/BED: D.2303 AUTHOR: COREY LUNA PHYSICIAN: REFERRING PHYSICIAN: CRESCENCIO BHANDARI MD DATE OF SERVICE: 05/01/18 Discharge Plan Patient Name: MERVAT MARTINEZ Facility: [facility]:[place] : 1955 Planned Disposition: Anticipated Discharge Date: Discharge Date: Expected LOS: Initial Reviewer: [email or web address] Initial Review Date: 04/28/2018 Generated: 05/01/18 6:37 pm Comments DCP- Discharge Planning Updated by [email or web address]: Jazz Devine on 05/01/18 4:[address] CM unable to do discharge planning assessment due to patients labored breathing. No family available at this time. CM will continue to follow and assist as needed with discharge planning / needs. DCP- Discharge Planning Updated by [id number]: Sujey Riley on 04/30/18 3:[address] CM RECEIVED A CM CONSULT ORDER. THE PATIENT JUST COMPLETED AN OT EVAL. HE WAS VERY SHORT OF BREATH W/ MINIMAL ACTIVITY. HIS NASAL O2 WAS 3.5 LITERS THIS EARLY AM. HE IS PRESENTLY ON 7/L OF NASAL O2. HAS INCREASED RESPIRATORY DISTRESS. PATIENT IS NOT ON OXYGEN AT HOME. HIS WORKS AT [employer]. SHE IS NOT AVAILABLE AT THIS TIME. PATIENT DID NOT WANT TO TELL HE DRINKS 30 PK OF BEER IN 1 1/2 DAYS PER THE NURSE. DISCUSSED INCREASED RESP DISTRESS AND O2 NEEDS W/ QA DEVELOPER. SHE WILL DISCUSS ORDERING A PULMONARY CONSULT W/ DR MOSS. PATIENT WILL BE ASSESSED WHEN HE IS LESS SHORT OF BREATH OR IS AT THE BEDSIDE. Patient Name: MERVAT MARTINEZ Page [id number] at 1736 All edits/amendments must be made on the electronic document DICTATION DATE: 05/01/181736 NUCLEAR PHYSICS PROFESSOR: ANGELES 05/01/181736 RPT#: [id number] DC DATE: STATUS: ADM IN [facility] [address] [id number] END OF REPORT
--- NOTE | 2018-05-01 19:05 | NUR ---
Received patient resting in bed with eyes closed, assessment completed per flowsheet. S1/S2 noted NSR on telemetry with HR 90, rythmic and regular. Breathing is shallow on 40L/100% Vapotherm with O2 sat 94%, inspiratory wheeze noted bilateral upper and mid with diminished lower. Abdomen is flat/soft with bowel sounds active x4, non-tender. All pulses palpable with cap refill < 3 sec, skin warm/dry with weakness noted all extremities. Repositioned for comfort, see flowsheet for details. All VSS and will continue to monitor.
--- NOTE | 2018-05-01 21:00 | NUR ---
Patient resting in bed with eyes closed, HS meds given without difficulty. Repositioned for comfort, denies pain or other needs and will continue to monitor.
--- NOTE | 2018-05-01 23:00 | NUR ---
Reassessment completed per flowsheet, no changes from previous assessment. S1/S2 noted NSR on telemetry with HR 90, rythmic and regular. Breathing is shallow on Vapotherm 40L/100% with O2 sat 94%, crackles/inspiratory wheeze noted bilateral upper and mid with diminished lower. All pulses palpable with cap refill < 3 sec, skin warm/dry. Denies pain or other needs at this time, see flowsheet for details. All VSS and will continue to monitor.
--- NOTE | 2018-05-01 23:45 | NUR ---
Patient placed on BiPAP 40% by RT, O2 sat 98%. Patient denies pain/discomfort, will continue to monitor.
[2018-05-02] VITALS (24 sets, daily range): BP systolic 132–175; BP diastolic 82–120
--- NOTE | 2018-05-02 01:00 | NUR ---
Patient sleeping in bed with eyes closed, BiPAP 40% with O2 sat 98%. No further needs at this time, will continue to monitor.
--- NOTE | 2018-05-02 03:00 | NUR ---
Reassessment completed per flowsheet, no changes from previous assessment. NSR on telemetry with HR 67, rythmic and regular. Breathing is shallow on BiPAP 40% with O2 sat 98%, crackles/inspiratory wheeze noted bilateral upper and mid with diminished lower. All pulses palpable with cap refill < 3 sec, skin warm/dry. Denies pain or other needs at this time, see flowsheet for details. All VSS and will continue to monitor.
[2018-05-02 04:44] LABS: BASOPHILS 0 % (0-2); EOSINOPHILS 0 % (0-7); HEMATOCRIT 29.6 % (42.0-54.0); HEMOGLOBIN 10.4 g/dL (13.5-17.5); IMMATURE GRANULOCYTES 0.7 % (0-5); LYMPHOCYTES 1.6 % (15-50); MCH 30.9 pg (26.0-34.0); MCHC 35.1 g/dL (31.0-37.0); MCV 87.8 fL (80.0-100.0); MEAN PLATELET VOLUME 11.9 fL (7.4-10.4); NEUTROPHILS 92.7 % (40-80); PLATELET COUNT 251 10x3/uL (130-400); RBC 3.37 10x6/uL (4.20-6.10); RDW 13.7 % (11.5-14.5); WBC 26.2 10x3/uL (4.8-10.8)
[2018-05-02 04:56] LABS: ALBUMIN 1.9 g/dL (3.4-5.0); ALKALINE PHOSPHATASE 56 U/L (46-116); ALT (SGPT) 38 U/L (10-68); BILIRUBIN - TOTAL 0.48 mg/dL (0.2-1.3); CALC OSMOLALITY 268 mosm/kg (275-300); CALCIUM 7.4 mg/dL (8.5-10.1); CARBON DIOXIDE 35.1 mmol/L (21.0-32.0); CHLORIDE - SERUM 98 mmol/L (98-107); GLUCOSE 144 mg/dL (74-106); POTASSIUM - SERUM 3.9 mmol/L (3.5-5.1); PROTEIN - SERUM 4.6 g/dL (6.4-8.2); SODIUM 133 mmol/L (136-145); UREA NITROGEN 12 mg/dL (7-18)
--- NOTE | 2018-05-02 05:00 | NUR ---
Patient resting in bed with eyes closed on BiPAP, no s/s of distress. AM labs collected without difficulty, no further needs and will continue to monitor.
[2018-05-02 05:13] LABS: CREATININE - SERUM 0.7 mg/dL (0.6-1.3); eGFR NON AFRICAN AMERICAN > 90 mL/min (90-120)
--- NOTE | 2018-05-02 07:30 | NUR ---
REPORT RECIEVED, SHIFT ASSESSMENT COMPLETE, PT IS ALERT AND ORIENTED, ALL PPP, VSS, CALL LIGHT IN REACH
--- NOTE | 2018-05-02 09:51 | NUR ---
PT PLACED BACK ON 40% BIPAP
--- NOTE | 2018-05-02 11:15 | NUR ---
REASSESSMENT COMPLETE, NO CHANGES NOTED, PT AWAKE AT THIS TIME, DENIES ANY NEEDS OR WANTS, VSS, CALL LIGHT IN REACH
[2018-05-02 11:24] LABS: ANA REFLEX - DIRECT Negative (Negative)
--- NOTE | 2018-05-02 13:00 | NUR ---
DR. ALEJO AT BEDSIDE, NEW ORDERS RECIEVED,
--- NOTE | 2018-05-02 13:25 | NUR ---
Nutrition follow-up: Diet: Regular as tolerated PO intake ~50% of meals Labs reviewed Wt: 106# Pt is now assessed with severe malnutrition of acute illness R/T pneumonia AEB: 1) > 2% weight x 5 days (108# at admit->now 106#) 2) severe subcutaneous fat, muscle loss too all extremeties; severe temporal wasting; severe collar bone, shoulder area wasting 3) < 50% intake of estimated energy needs for > 5 days Will continue to provide food choices with selective menus and honor food preferences. RDN will order Ensure with meals. If pt continues to lose weight may need to consider PEG tube placement for nutrition support. RDN following.
--- NOTE | 2018-05-02 14:17 | NUR ---
PT WENT TO CT AT THIS TIME, VIA BED
--- NOTE | 2018-05-02 14:45 | NUR ---
PT BACK FROM CT AT THIS TIME
--- NOTE | 2018-05-02 17:26 | NUR ---
PT RESTING AT THIS TIME, WILL CON'T TO MONITOR
--- NOTE | 2018-05-02 19:05 | NUR ---
Received patient resting in bed with eyes open, assessment completed per flowsheet. Patient AO x4, answers appropriately/follows instructions. S1/S2 noted NSR on telemetry with HR 96, rythmic and regular. Breathing is shallow on 13L via HF NC with o2 sat 92%, expiratory wheeze noted bilateral upper and mid with diminished lower. Abdomen is round/soft with bowel sounds active x4, non-tender. Patient utilizes Urinal jug without assist, 750ml clear yellow urine noted. All pulses palpable with cap refill < 3 sec, skin warm dry with weakness noted BLE. Denies pain or other needs at this time, see flowsheet for details. All VSS and will continue to monitor.
--- NOTE | 2018-05-02 21:00 | NUR ---
Patient resting in bed on 13L HF NC with O2 sat 93%, HS meds given without difficulty. Denies pain or other needs at this time, all VSS and will continue to monitor.
--- NOTE | 2018-05-02 23:00 | NUR ---
Reassessment completed per flowsheet, no changes from previous assessment. Patient NSR on telemetry with HR 84, rythmic and regular. Breathing is shallow on 13L via HF NC with O2 sat 93%, expiratory wheeze noted bilateral upper and mid with diminished lower. All pulses palpable with cap refill , 3 sec, skin warm/dry. Denies pain or other needs at this time, see flowsheet for details. All VSS and will continue to monitor.
[2018-05-03] VITALS (25 sets, daily range): BP systolic 139–182; BP diastolic 73–110
--- NOTE | 2018-05-03 01:00 | NUR ---
Patient resting in bed on BiPAP 40% with O2 sat 97%, no s/s of distress at this time. Repositioned for comfort, no further needs and will continue to monitor.
--- NOTE | 2018-05-03 02:58 | NUR ---
Reassessment completed per flowsheet, no changes from previous assessment. S1/S2 noted NSR on telemetry 74, rythmic and regular. Breathing is shallow on 40% BiPAP with O2 sat 97%, expiratory wheeze noted bilateral upper and mid with diminished lower. All pulses palpable with cap refill < 3 sec, skin warm/dry. All pulses palpable with cap refill < 3 sec, skin warm/dry. Repositioned for comfort, see flowsheet for details. All VSS and will continue to monitor.
[2018-05-03 04:52] LABS: BASOPHILS 0.1 % (0-2); EOSINOPHILS 0 % (0-7); HEMATOCRIT 30.3 % (42.0-54.0); HEMOGLOBIN 10.7 g/dL (13.5-17.5); IMMATURE GRANULOCYTES 0.7 % (0-5); LYMPHOCYTES 2.3 % (15-50); MCH 31.1 pg (26.0-34.0); MCHC 35.3 g/dL (31.0-37.0); MCV 88.1 fL (80.0-100.0); MEAN PLATELET VOLUME 11.3 fL (7.4-10.4); MONOCYTES 3.7 % (2-11); NEUTROPHILS 93.2 % (40-80); PLATELET COUNT 274 10x3/uL (130-400); RBC 3.44 10x6/uL (4.20-6.10); RDW 13.6 % (11.5-14.5)
--- NOTE | 2018-05-03 05:00 | NUR ---
Patient resting in bed on BiPAP 40% with O2 sat 97%, no s/s of distress at this time. Denies pain or other needs at this time, all VSS and will continue to monitor.
[2018-05-03 05:01] LABS: WBC 17.8 10x3/uL (4.8-10.8)
[2018-05-03 05:09] LABS: ALBUMIN 1.9 g/dL (3.4-5.0); ALKALINE PHOSPHATASE 58 U/L (46-116); ALT (SGPT) 34 U/L (10-68); BILIRUBIN - TOTAL 0.57 mg/dL (0.2-1.3); CALC OSMOLALITY 271 mosm/kg (275-300); CALCIUM 7.6 mg/dL (8.5-10.1); CARBON DIOXIDE 37.9 mmol/L (21.0-32.0); CHLORIDE - SERUM 96 mmol/L (98-107); CREATININE - SERUM 0.7 mg/dL (0.6-1.3); GLUCOSE 141 mg/dL (74-106); MAGNESIUM - SERUM 2.1 mg/dL (1.8-2.4); PHOSPHOROUS 4.1 mg/dL (2.5-4.9); POTASSIUM - SERUM 3.8 mmol/L (3.5-5.1); PROTEIN - SERUM 4.9 g/dL (6.4-8.2); SODIUM 135 mmol/L (136-145); UREA NITROGEN 12 mg/dL (7-18); eGFR NON AFRICAN AMERICAN > 90 mL/min (90-120)
--- NOTE | 2018-05-03 07:15 | NUR ---
REPORT RECIEVED, SHIFT ASSESSMENT COMPELTE, PT IS ALERT AND ORIENTED, ALL PPP, VSS, CALL LIGHT IN REACH
--- NOTE | 2018-05-03 09:23 | NUR ---
PT RESTING AT THIS TIME, NO NEEDS NOTED, WILL CON'T TO MONITOR
--- NOTE | 2018-05-03 11:00 | NUR ---
PT RESTING AT THIS TIME, WILL CONT'T TO MONITOR
--- NOTE | 2018-05-03 13:00 | NUR ---
FAMILY AT BEDSIDE, UPDATE GIVEN
--- NOTE | 2018-05-03 15:24 | NUR ---
NO NEEDS NOTED, VSS. CALL LIGHT IN REACH
--- NOTE | 2018-05-03 18:08 | NUR ---
1700 AWAKE IN NO DISTRESS. WATCHING TV DINNER COMPLETE APPETITE GOOD
--- NOTE | 2018-05-03 19:00 | NUR ---
REPORT RECEIVED. RECEIVED PT IN BED. AWAKE AND ALERT. ORIENTED X 4. SPEECH CLEAR AND APPROPRIATE. MONITORS CONNECTED TO PT WITH ALARMS SET. IV FLUIDS/TUBING LABELED AND CURRENT. VSS. NO DISTRESS OBSERVED. DROPLET ISOLATION CONTINUES WITH PRECAUTIONS OBSERVED.
--- NOTE | 2018-05-03 19:20 | NUR ---
REPORT RECEIVED. RECEIVED PATIENT IN BED, RESTING WITH EYES CLOSED, ROUSES SLOWLY TO TACTILE STIMULI. ALERT AND ORIENTED TO PERSON ONLY. SPEECH CLEAR AND APPROPRIATE. MONITORS CONNECTED TO PATIENT WITH ALARMS SET. IV FLUIDS/ TUBING LABELED AND CURRENT. DROPLET ISOLATION CONTINUES WITH PRECAUTIONS OBSERVED. SR UP X2. CALL LIGHT IN REACH. SHIFT ASSESSMENT COMPLETED PER FLOW SHEET WITH NO DISTRESS OBSERVED.
--- NOTE | 2018-05-03 21:00 | NUR ---
RESTING WITH EYES CLOSED, EASILY ROUSED AND ALERT. NO DISTRESS OBSERVED. VSS.
--- NOTE | 2018-05-03 21:40 | NUR ---
SPOKE WITH DR. MOSS. STATUS UPDATE GIVEN/ INFORMED OF BLACK DISCOLORATION TO RIGHT GREAT TOE AND COOL LLE WITH PEDAL PULSE DOPPLERED. N/O RECEIVED FOR ABG, SAYS OK TO GIVE BREAK FROM BIPAP IF ABG RESULTS ALLOW AND WILL CHECK BLE IN AM.
--- NOTE | 2018-05-03 23:00 | NUR ---
REASSESSMENT COMPLETED PER FLOW SHEET NO CHANGES OBSERVED. VSS. NO DISTRESS OBSERVED. CALL LIGHT IN REACH AND PT ABLE TO UTILIZE TO MAKE NEEDS KNOWN. PATIENT ABLE TO TURN SELF FREELY IN BED . SR UP X 2
[2018-05-04] VITALS (14 sets, daily range): BP systolic 139–164; BP diastolic 80–98
[2018-05-04 00:22] LABS: APPEARANCE CLEAR (CLEAR); BILIRUBIN NEGATIVE (NEGATIVE); COLOR YELLOW (YELLOW); GLUCOSE 500 mg/dL (NEGATIVE); KETONE NEGATIVE (NEGATIVE); NITRITE NEGATIVE (NEGATIVE); PROTEIN NEGATIVE (NEGATIVE); SPECIFIC GRAVITY 1.005 (1.005-1.020); UROBILINOGEN NORMAL (NORMAL)
--- NOTE | 2018-05-04 01:00 | NUR ---
RESTING WITH EYES CLOSED. EASILY ROUSED AND ALERT. VSS. NO DISTRESS OBSERVED. CALL LIGHT IN REACH
--- NOTE | 2018-05-04 03:00 | NUR ---
REASSESSMENT COMPLETED PER FLOW SHEET WITH NO DISTRESS OBSERVED. CALL LIGHT IN REACH.
[2018-05-04 03:37] LABS: BASOPHILS 0.1 % (0-2); EOSINOPHILS 0 % (0-7); HEMATOCRIT 31.7 % (42.0-54.0); HEMOGLOBIN 11.3 g/dL (13.5-17.5); IMMATURE GRANULOCYTES 0.6 % (0-5); LYMPHOCYTES 5.1 % (15-50); MCH 31.6 pg (26.0-34.0); MCHC 35.6 g/dL (31.0-37.0); MCV 88.5 fL (80.0-100.0); MEAN PLATELET VOLUME 11.4 fL (7.4-10.4); MONOCYTES 2.9 % (2-11); NEUTROPHILS 91.3 % (40-80); PLATELET COUNT 312 10x3/uL (130-400); RBC 3.58 10x6/uL (4.20-6.10); RDW 13.4 % (11.5-14.5); WBC 18.2 10x3/uL (4.8-10.8)
[2018-05-04 03:52] LABS: ALBUMIN 1.9 g/dL (3.4-5.0); ALKALINE PHOSPHATASE 56 U/L (46-116); ALT (SGPT) 35 U/L (10-68); BILIRUBIN - TOTAL 0.52 mg/dL (0.2-1.3); CALCIUM 7.8 mg/dL (8.5-10.1); CHLORIDE - SERUM 95 mmol/L (98-107); CREATININE - SERUM 0.6 mg/dL (0.6-1.3); GLUCOSE 153 mg/dL (74-106); POTASSIUM - SERUM 3.3 mmol/L (3.5-5.1); SODIUM 133 mmol/L (136-145); eGFR NON AFRICAN AMERICAN > 90 mL/min (90-120)
[2018-05-04 03:54] LABS: CALC OSMOLALITY 270 mosm/kg (275-300); UREA NITROGEN 18 mg/dL (7-18)
--- NOTE | 2018-05-04 05:00 | NUR ---
AWAKE AND ALERT. ORIENTED X 4, SPEECH CLEAR. NO DISTRESS OBSERVED. CALL LIGHT IN REACH.
--- NOTE | 2018-05-04 09:56 | NUR ---
Nutrition follow-up: Diet: Regular as tolerated Ensure with meals Nurse reports good po intake at this time. Labs reviewed Wt: 105# Will continuet to provide food choices and honor all food choices. RDN following.
--- NOTE | 2018-05-04 10:16 | NUR ---
0700 AWAKE ALERT SPOUSE AT BEDSIDE VOICES NO COMPLAINTS ASSESSMENT COMPLETE
--- NOTE | 2018-05-04 10:17 | NUR ---
0900 APPETITE POOR. STATED THAT MEDS MAKE HIS FOOD TASTE BAD BEDSIDE DOPPLER STUDY INITIATED BY TECH
--- NOTE | 2018-05-04 14:49 | MORECARE ---
CASE MANAGEMENT DISCHARGE SUMMARY PATIENT: MERVAT GRIMM UNIT: [id number] ADM DATE: 04/28/18 AGE: 62 : 55 SEX: M ROOM/BED: D.2303 AUTHOR: CHERYL,DOC PHYSICIAN: REFERRING PHYSICIAN: CRESCENCIO BHANDARI MD DATE OF SERVICE: 05/04/18 Discharge Plan Patient Name: MERVAT GRIMM Facility: [facility]:[place] : 1955 Planned Disposition: Home Anticipated Discharge Date: Discharge Date: Expected LOS: Initial Reviewer: [email or web address] Initial Review Date: 04/27/2018 Generated: 05/04/18 3:48 pm Comments DCP- Discharge Planning Updated by [id number]: Jazz Devine on 05/01/18 4:[address] CM unable to do discharge planning assessment due to patients labored breathing. No family available at this time. CM will continue to follow and assist as needed with discharge planning / needs. DCP- Discharge Planning Updated by [id number]: Sujey Riley on 04/30/18 3:[address] CM RECEIVED A CM CONSULT ORDER. THE PATIENT JUST COMPLETED AN OT EVAL. HE WAS VERY SHORT OF BREATH W/ MINIMAL ACTIVITY. HIS NASAL O2 WAS 3.5 LITERS THIS EARLY AM. HE IS PRESENTLY ON 7/L OF NASAL O2. HAS INCREASED RESPIRATORY DISTRESS. PATIENT IS NOT ON OXYGEN AT HOME. HIS WORKS AT [employer]. SHE IS NOT AVAILABLE AT THIS TIME. PATIENT DID NOT WANT TO TELL HE DRINKS 30 PK OF BEER IN 1 1/2 DAYS PER THE NURSE. DISCUSSED INCREASED RESP DISTRESS AND O2 NEEDS W/ SHOP LABORER. SHE WILL DISCUSS ORDERING A PULMONARY CONSULT W/ DR MOSS. PATIENT WILL BE ASSESSED WHEN HE IS LESS SHORT OF BREATH OR IS AT THE BEDSIDE. DCPIA - Discharge Planning Initial Assessment Updated by [email or web address]: Jazz Devine on 05/04/18 2:44 pm * Is the patient Alert and Oriented? Yes * How many steps to enter\exit or inside your home? * PCP Dave * Pharmacy [facility] * Preadmission Environment Home with Family * ADLs Independent * Equipment None * List name and contact numbers for known caregivers / representatives who currently or will assist patient after discharge: Mariam Grimm - - [phone] * Verbal permission to speak to the caregivers and representatives has been obtained from the patient. Yes * Community resources currently utilized None * Additional services required to return to the preadmission environment? No * Can the patient safely return to the preadmission environment? Yes * Has this patient been hospitalized within the prior 30 days at any hospital? No Last DP export: 05/01/18 4:38 p Patient Name: MERVAT GRIMM Page [id number] at 1449 All edits/amendments must be made on the electronic document DICTATION DATE: 05/04/181447 NATURAL RESOURCES MANAGER: ANGELES 05/04/181447 RPT#: [id number] DC DATE: STATUS: ADM IN [facility] [address] [place] [address] END OF REPORT
--- NOTE | 2018-05-04 14:58 | MORECARE ---
CASE MANAGEMENT DISCHARGE SUMMARY PATIENT: MERVAT GRIMM UNIT: [id number] ADM DATE: 04/28/18 AGE: 62 : 55 SEX: M ROOM/BED: D.2303 AUTHOR: CHERYL,DOC PHYSICIAN: REFERRING PHYSICIAN: CRESCENCIO BHANDARI MD DATE OF SERVICE: 05/04/18 Discharge Plan Patient Name: MERVAT GRIMM Facility: [facility]:[place] : 1955 Planned Disposition: Home Anticipated Discharge Date: Discharge Date: Expected LOS: Initial Reviewer: [email or web address] Initial Review Date: 04/27/2018 Generated: 05/04/18 3:58 pm Comments DCP- Discharge Planning Updated by [email or web address]: Jazz Devine on 05/04/18 1:[address] Patient Name: MERVAT GRIMM Admission Status: ER Accout number: [id number] Admission Date: 04-28-2018 : 1955 Admission Diagnosis:COUGH Attending: CRESCENCIO BHANDARI Current LOS: 6 Anticipated DC Date: Planned Disposition: Home Primary Insurance: [employer] [place] [facility] Discharge Planning Comments: CM met with patient at bedside after obtaining verbal consent. Patient stated that he lives at home with his and plans to return upon discharge. He denies any medical equipment or home health services prior to admission. He states he has insurance BCBS through his 's employer ([employer]). Patient denies any discharge needs at this time. CM will continue to follow and assist as needed with discharge planning / needs. Farm Rancher: Jazz Devine DCP- Discharge Planning Updated by [id number]: Jazz Devine on 05/01/18 4:[address] CM unable to do discharge planning assessment due to patients labored breathing. No family available at this time. CM will continue to follow and assist as needed with discharge planning / needs. DCP- Discharge Planning Updated by [id number]: Sujey Riley on 04/30/18 3:[address] CM RECEIVED A CM CONSULT ORDER. THE PATIENT JUST COMPLETED AN OT EVAL. HE WAS VERY SHORT OF BREATH W/ MINIMAL ACTIVITY. HIS NASAL O2 WAS 3.5 LITERS THIS EARLY AM. HE IS PRESENTLY ON 7/L OF NASAL O2. HAS INCREASED RESPIRATORY DISTRESS. PATIENT IS NOT ON OXYGEN AT HOME. HIS WORKS AT [employer]. SHE IS NOT AVAILABLE AT THIS TIME. PATIENT DID NOT WANT TO TELL HE DRINKS 30 PK OF BEER IN 1 1/2 DAYS PER THE NURSE. DISCUSSED INCREASED RESP DISTRESS AND O2 NEEDS W/ WORK FROM HOME. SHE WILL DISCUSS ORDERING A PULMONARY CONSULT W/ DR MOSS. PATIENT WILL BE ASSESSED WHEN HE IS LESS SHORT OF BREATH OR IS AT THE BEDSIDE. DCPIA - Discharge Planning Initial Assessment Updated by [id number]: Jazz Devine on 05/04/18 2:44 pm * Is the patient Alert and Oriented? Yes * How many steps to enter\exit or inside your home? * PCP Dave * [facility] * Preadmission Environment Home with Family * ADLs Independent * Equipment None * List name and contact numbers for known caregivers / representatives who currently or will assist patient after discharge: Mariam Grimm - - [phone] * Verbal permission to speak to the caregivers and representatives has been obtained from the patient. Yes * Community resources currently utilized None * Additional services required to return to the preadmission environment? No * Can the patient safely return to the preadmission environment? Yes * Has this patient been hospitalized within the prior 30 days at any hospital? No Last DP export: 05/04/18 1:48 p Patient Name: MERVAT GRIMM Page [id number] at 1458 All edits/amendments must be made on the electronic document DICTATION DATE: 05/04/181457 BOWLING BALL WEIGHER AND PACKER: ANGELES 05/04/181457 RPT#: [id number] DC DATE: STATUS: ADM IN [facility] [address] [place] [address] END OF REPORT
[2018-05-04 16:13] LABS: ANCA - ANTIMYELOPEROXIDASE <9.0 U/mL (0.0-9.0); ANCA - ANTIPROTEINASE 3 <3.5 U/mL (0.0-3.5); ANCA - ATYPICAL <1:20 titer (Neg:<1:20); ANCA - CYTOPLASMIC <1:20 titer (Neg:<1:20); ANCA - PERINUCLEAR <1:20 titer (Neg:<1:20)
--- NOTE | 2018-05-04 17:49 | NUR ---
[address] ALEJO ROUNDING ON PATIENT NO C/O PAIN NO DISTRESS NOTED
--- NOTE | 2018-05-04 17:50 | NUR ---
1300 DR MOSS ROUNDING ON PATIENT OK TO TRANSFER TO FLOOR
--- NOTE | 2018-05-04 17:51 | NUR ---
1500 CAN OF BEER ORDERED AND GIVEN TO PATIENT VOICES NO CONPLANTS
--- NOTE | 2018-05-04 17:52 | NUR ---
1700 CAN OF BEER WITH DINNER TRAY
--- NOTE | 2018-05-04 17:52 | NUR ---
1750 KATHERYN CALLED TO ALEJANDRA FOR TRANSFER TO ROOM 2146
--- NOTE | 2018-05-04 18:12 | NUR ---
PT ARRIVED TO UNIT VIA BED. TRANSFERED PT TO NEW BED IN ROOM. PT IS ALERT AND ORIENTED AND ON 6L HIGH FLOW NC. LEFT FA 20G IV NS AT 20ML/HR AND VANCOMYCIN RUNNING AT 100ML/HR. URINAL AT BEDSIDE. AND GOT PT AN ICE WATER PER HIS REQUEST. PT BEER AND ENSURE FROM DINNER TRAY PLACED IN FRIDGE WITH PT'S STICKERS ON THEM PER HIS REQUEST. PT HAS NO FURTHER NEEDS AT THIS TIME. BED LOW. CL IN REACH. WILL CONTINUE WITH PLAN OF CARE.
--- NOTE | 2018-05-04 23:10 | NUR ---
SERVED PT'S ORDERED ONE BUD LIGHT. PT ALERT AND ORIENTED. NO S/S OF DISTRESS. CALL LIGHT WITHIN REACH. WILL CONTINUE TO MONITOR.
[2018-05-05] VITALS: BP 142/78
--- NOTE | 2018-05-05 00:23 | NUR ---
PT RESTING IN BED COMFORTABLY WITH EYES CLOSED. RR EVEN AND UNLABORED. VANC RUNNIBG THROUGH IV. BED LOW CALL LIGHT WITHIN REACH. WILL CONTINUE TO MONITOR.
--- NOTE | 2018-05-05 01:54 | NUR ---
Oxygen on, IV infusing, HOB elevated 45 degrees. Eyes closed, respirations easy and regular, deemed to be sleeping. No signs of distress.
[2018-05-05 03:10] LABS: MYCOPLASMA PNEUMO IGG <100 U/mL (0-99)
[2018-05-05 04:00] VITALS: BP 138/66
[2018-05-05 05:56] LABS: BASOPHILS 0.1 % (0-2); EOSINOPHILS 0 % (0-7); HEMATOCRIT 33.6 % (42.0-54.0); HEMOGLOBIN 11.6 g/dL (13.5-17.5); IMMATURE GRANULOCYTES 0.7 % (0-5); LYMPHOCYTES 4.8 % (15-50); MCH 31.1 pg (26.0-34.0); MCHC 34.5 g/dL (31.0-37.0); MCV 90.1 fL (80.0-100.0); MEAN PLATELET VOLUME 11.2 fL (7.4-10.4); NEUTROPHILS 91.4 % (40-80); PLATELET COUNT 358 10x3/uL (130-400); RBC 3.73 10x6/uL (4.20-6.10); RDW 13.9 % (11.5-14.5); WBC 18.5 10x3/uL (4.8-10.8)
[2018-05-05 06:17] LABS: CALC OSMOLALITY 270 mosm/kg (275-300); CALCIUM 7.9 mg/dL (8.5-10.1); CARBON DIOXIDE 37.6 mmol/L (21.0-32.0); CHLORIDE - SERUM 96 mmol/L (98-107); CREATININE - SERUM 0.7 mg/dL (0.6-1.3); GLUCOSE 117 mg/dL (74-106); SODIUM 134 mmol/L (136-145); UREA NITROGEN 17 mg/dL (7-18); eGFR NON AFRICAN AMERICAN > 90 mL/min (90-120)
[2018-05-05 06:19] LABS: POTASSIUM - SERUM 4.5 mmol/L (3.5-5.1)
[2018-05-05 08:18] VITALS: BP 176/102
[2018-05-05 12:32] VITALS: BP 155/92
--- NOTE | 2018-05-05 13:49 | NUR ---
PATIENT IS RESTING IN BED AND DENIES ANY NEEDS AT THIS TIME. HE IS USING HIS URINAL, NEEDED. STATES THAT HE IS FEELING TOO WEAK TO GET UP AND AROUND YET.
[2018-05-05 15:59] VITALS: BP 153/92
--- NOTE | 2018-05-05 17:48 | NUR ---
I have reviewed this patient and I concur with the Shift Assessment completed by the Licensed Practical Nurse today this shift.
--- NOTE | 2018-05-05 18:00 | NUR ---
PATIENT IS SITTING UP IN BED. BROUGHT HIM ICE FOR HIS BEER. HE REPORTS FEELING BETTER. DR GUERIN BUMPED HIS O2 DOWN TO 4L HIGH FLOW FROM 6 AND HIS O2 SATURATION IS 96%.
--- NOTE | 2018-05-05 19:30 | NUR ---
RECEIVED REPORT, WILL ASSUME CARE OF PT, RESTARTED IV FLUIDS @75, DENIES ANY NEEDS, BED IS LOW, SRX2, CALL LIGHT IN REACH, WILL CONTINUE PLAN OF CARE
[2018-05-05 20:00] VITALS: BP 141/93
--- NOTE | 2018-05-06 02:57 | NUR ---
I have reviewed this patient and I concur with the Shift Assessment completed by the Licensed Practical Nurse today this shift.
[2018-05-06 04:00] VITALS: BP 145/93
[2018-05-06 05:52] LABS: BASOPHILS 0.1 % (0-2); EOSINOPHILS 0 % (0-7); HEMATOCRIT 32.4 % (42.0-54.0); HEMOGLOBIN 11.2 g/dL (13.5-17.5); IMMATURE GRANULOCYTES 0.5 % (0-5); LYMPHOCYTES 3.2 % (15-50); MCH 31.4 pg (26.0-34.0); MCHC 34.6 g/dL (31.0-37.0); MCV 90.8 fL (80.0-100.0); MEAN PLATELET VOLUME 11.2 fL (7.4-10.4); MONOCYTES 7.1 % (2-11); NEUTROPHILS 89.1 % (40-80); PLATELET COUNT 343 10x3/uL (130-400); RBC 3.57 10x6/uL (4.20-6.10); WBC 17.5 10x3/uL (4.8-10.8)
[2018-05-06 05:55] LABS: CALC OSMOLALITY 269 mosm/kg (275-300); CARBON DIOXIDE 32.2 mmol/L (21.0-32.0); CHLORIDE - SERUM 97 mmol/L (98-107); CREATININE - SERUM 0.6 mg/dL (0.6-1.3); GLUCOSE 139 mg/dL (74-106); POTASSIUM - SERUM 4.4 mmol/L (3.5-5.1); SODIUM 133 mmol/L (136-145); UREA NITROGEN 17 mg/dL (7-18); eGFR NON AFRICAN AMERICAN > 90 mL/min (90-120)
--- NOTE | 2018-05-06 08:00 | NUR ---
RECIEVED BED REPORT. AM ROUNDS COMPLETED. VSS AAOX3. NO S/S OF RR DISTRESS, RR EVEN AND UNLABORED. AM MEDS GIVEN, PT TOLERATE WELL. ASSIST PT TO THE BATHROOM. PT DENIES ANY FURTHER NEEDS FOR COMFORT CARE AT THIS TIME. WILL CPOC. CL IN REACH, BED IN LOW, SR UP X2.
[2018-05-06 09:00] VITALS: BP 163/97
--- NOTE | 2018-05-06 12:17 | NUR ---
PT CURRENTLY SITTING UP IN BED, WITH A CAN OF BUDLIGHT BEER @BEDSIDE PER PROVIDERS ORDERS. CL IN REACH, BED IN LOW, SR UP X2. WILL CTM.
[2018-05-06 12:41] VITALS: BP 141/83
[2018-05-06 16:25] VITALS: BP 146/85
--- NOTE | 2018-05-06 19:37 | NUR ---
RECEIVED REPORT, WILL ASSUME CARE OF PT, VISITING WITH FRIENDS, DENIES ANY NEEDS AT THIS TIME, BED IS LOW, SRX2, CALL LIGHT IN REACH, WILL CONTINUE PLAN OF CARE
[2018-05-06 20:26] VITALS: BP 147/87
[2018-05-07 01:37] VITALS: BP 155/97
--- NOTE | 2018-05-07 01:52 | NUR ---
I have reviewed this patient and I concur with the Shift Assessment completed by the Licensed Practical Nurse today this shift.
[2018-05-07 06:20] LABS: CALC OSMOLALITY 274 mosm/kg (275-300); CALCIUM 8.2 mg/dL (8.5-10.1); CHLORIDE - SERUM 99 mmol/L (98-107); CREATININE - SERUM 0.6 mg/dL (0.6-1.3); GLUCOSE 120 mg/dL (74-106); POTASSIUM - SERUM 4.2 mmol/L (3.5-5.1); SODIUM 136 mmol/L (136-145); UREA NITROGEN 17 mg/dL (7-18); eGFR NON AFRICAN AMERICAN > 90 mL/min (90-120)
[2018-05-07 06:21] LABS: BASOPHILS 0.1 % (0-2); EOSINOPHILS 0 % (0-7); HEMATOCRIT 31.4 % (42.0-54.0); IMMATURE GRANULOCYTES 0.5 % (0-5); LYMPHOCYTES 8.7 % (15-50); MCH 31.6 pg (26.0-34.0); MCV 90.2 fL (80.0-100.0); MEAN PLATELET VOLUME 11.1 fL (7.4-10.4); MONOCYTES 5.3 % (2-11); NEUTROPHILS 85.4 % (40-80); PLATELET COUNT 347 10x3/uL (130-400); RBC 3.48 10x6/uL (4.20-6.10); RDW 14.1 % (11.5-14.5); WBC 16.5 10x3/uL (4.8-10.8)
[2018-05-07 08:23] VITALS: BP 148/93
[2018-05-07 11:52] VITALS: BP 142/91
--- NOTE | 2018-05-07 14:18 | NUR ---
Nutrition follow-up: Pt tx out of ICU Diet: Regular with l beer with lunch, dinner PO intake ~60-75% of meals Labs reviewed Wt: 98#; pt has lost more weight +BM Pt needs nutrition support of PEG tube placement vs NGT placed due to continued wt loss. RDN following.
--- NOTE | 2018-05-07 15:50 | MORECARE ---
CASE MANAGEMENT DISCHARGE SUMMARY PATIENT: MERVAT GRIMM UNIT: [id number] ADM DATE: 04/28/18 AGE: 62 : 55 SEX: M ROOM/BED: D.2140 AUTHOR: CHERYL,DOC PHYSICIAN: REFERRING PHYSICIAN: CRESCENCIO BHANDARI MD DATE OF SERVICE: 05/07/18 Discharge Plan Patient Name: MERVAT GRIMM Facility: [facility]:[place] : 1955 Planned Disposition: Home Anticipated Discharge Date: 05/08/18 Discharge Date: Expected LOS: 10 Initial Reviewer: [email or web address] Initial Review Date: 04/27/2018 Generated: 05/07/18 4:50 pm Comments DCP- Discharge Planning Updated by [email or web address]: Jazz Devine on 05/04/18 1:[address] Patient Name: MERVAT GRIMM Admission Status: ER Accout number: [id number] Admission Date: 04-28-2018 : 1955 Admission Diagnosis:COUGH Attending: CRESCENCIO BHANDARI Current LOS: 6 Anticipated DC Date: Planned Disposition: Home Primary Insurance: [employer] Discharge Planning Comments: CM met with patient at bedside after obtaining verbal consent. Patient stated that he lives at home with his and plans to return upon discharge. He denies any medical equipment or home health services prior to admission. He states he has insurance BCBS through his 's employer ([employer]). Patient denies any discharge needs at this time. CM will continue to follow and assist as needed with discharge planning / needs. Planned Giving Officer: Jazz Devine DCP- Discharge Planning Updated by [id number]: Jazz Devine on 05/01/18 4:[address] CM unable to do discharge planning assessment due to patients labored breathing. No family available at this time. CM will continue to follow and assist as needed with discharge planning / needs. DCP- Discharge Planning Updated by [id number]: Sujey Riley on 04/30/18 3:[address] CM RECEIVED A CM CONSULT ORDER. THE PATIENT JUST COMPLETED AN OT EVAL. HE WAS VERY SHORT OF BREATH W/ MINIMAL ACTIVITY. HIS NASAL O2 WAS 3.5 LITERS THIS EARLY AM. HE IS PRESENTLY ON 7/L OF NASAL O2. HAS INCREASED RESPIRATORY DISTRESS. PATIENT IS NOT ON OXYGEN AT HOME. HIS WORKS AT [employer]. SHE IS NOT AVAILABLE AT THIS TIME. PATIENT DID NOT WANT TO TELL HE DRINKS 30 PK OF BEER IN 1 1/2 DAYS PER THE NURSE. DISCUSSED INCREASED RESP DISTRESS AND O2 NEEDS W/ CRANBERRY BOG SUPERVISOR. SHE WILL DISCUSS ORDERING A PULMONARY CONSULT W/ DR MOSS. PATIENT WILL BE ASSESSED WHEN HE IS LESS SHORT OF BREATH OR IS AT THE BEDSIDE. DCPIA - Discharge Planning Initial Assessment Updated by [email or web address]: Jazz Devine on 05/04/18 2:44 pm * Is the patient Alert and Oriented? Yes * How many steps to enter\exit or inside your home? * PCP Dave * [facility] * Preadmission Environment Home with Family * ADLs Independent * Equipment None * List name and contact numbers for known caregivers / representatives who currently or will assist patient after discharge: Mariam Grimm - - [phone] * Verbal permission to speak to the caregivers and representatives has been obtained from the patient. Yes * Community resources currently utilized None * Additional services required to return to the preadmission environment? No * Can the patient safely return to the preadmission environment? Yes * Has this patient been hospitalized within the prior 30 days at any hospital? No External Providers External Provider: [facility] Next Contact Date: 05/07/2018 Service Request Date: Service Type: Resolution: Reviewer: Comments: Last DP export: 05/04/18 1:58 p Patient Name: MERVAT GRIMM Page [id number] at 1550 All edits/amendments must be made on the electronic document DICTATION DATE: 05/07/18 1549 PIPE CUTTER: ANGELES 05/07/18 1549 RPT#: [id number] [place] DATE: STATUS: ADM IN [facility] [address] [place] [address] END OF REPORT
--- NOTE | 2018-05-07 16:13 | MORECARE ---
CASE MANAGEMENT DISCHARGE SUMMARY PATIENT: MERVAT GRIMM UNIT: [id number] ADM DATE: 04/28/18 AGE: 62 : 55 SEX: M ROOM/BED: D.2140 AUTHOR: CHERYL,DOC PHYSICIAN: REFERRING PHYSICIAN: CRESCENCIO BHANDARI MD DATE OF SERVICE: 05/07/18 Discharge Plan Patient Name: MERVAT GRIMM Facility: [facility]:[place] : 1955 Planned Disposition: Home Anticipated Discharge Date: 05/08/18 Discharge Date: Expected LOS: 10 Initial Reviewer: [id number] Initial Review Date: 04/27/2018 Generated: 05/07/18 5:13 pm Comments DCP- Discharge Planning Updated by [email or web address]: Jadon Tomlinson on 05/07/18 3:[address] Patient Name: MERVAT GRIMM Encounter No: [id number] : 1955 Primary Insurance: [employer] [facility] Anticipated DC Date: 05-08-2018 Planned Disposition: Home DCP follow-up note: CM RECEIVED ORDER FOR HOME OXYGEN AND NEBULIZER. CM MET WITH PT IN ROOM TO DISCUSS DISCHARGE NEEDS AND PLANNING. CM DISCUSSED AVAILABILITY OF HOME HEALTH, REHAB SERVICES AND MEDICAL EQUIPMENT. PT DENIES DISCHARGE NEEDS. SPOUSE TO TRANSPORT HOME AT DISCHARGE. MEDICAL EQUIPMENT PROVIDER LISTING PROVIDED, PT SIGNED CHOICE FOR ANY COMPANY, WANTS THEM TO BE IN HIS INSURANCE NETWORK. CM CALLED [facility], , SPOKE TO SHANIA, PROVIDED REFERRAL INFORMATION. MARGIE WILL PROCESS FOR OXYGEN AND NEBULIZER. CM FAXED REFERRAL AND SUPPORTING CHART INFORMATION TO [facility], . [facility] WILL CONTACT PT REGARDING ANY OUT OF POCKET EXPENSES FOR MEDICAL EQUIPMENT THAT MAY BE REQUIRED. PT'S CELL PHONE IS [phone]. [facility] WILL DELIVER PORTABLE OXYGEN TO HOSPITAL TOMORROW, 05-08-18, AND WILL ARRANGE HOME DELIVERY OF HOME OXYGEN AND NEXULIZER WHEN PT ARRIVES AT HOME AFTER DISCHARGE. Jadon Tomlinson, CASE MANAGEMENT DCP- Discharge Planning Updated by [id number]: Jazz Devine on 05/04/18 1:[address] Patient Name: MERVAT GRIMM Admission Status: ER Accout number: [id number] Admission Date: 04-28-2018 : 1955 Admission Diagnosis:COUGH Attending: CRESCENCIO BHANDARI Current LOS: 6 Anticipated DC Date: Planned Disposition: Home Primary Insurance: [employer] [facility] Discharge Planning Comments: CM met with patient at bedside after obtaining verbal consent. Patient stated that he lives at home with his and plans to return upon discharge. He denies any medical equipment or home health services prior to admission. He states he has insurance BCBS through his 's employer ([employer]). Patient denies any discharge needs at this time. CM will continue to follow and assist as needed with discharge planning / needs. Economic Forecaster: Jazz Devine DCP- Discharge Planning Updated by [id number]: Jazz Devine on 05/01/18 4:[address] CM unable to do discharge planning assessment due to patients labored breathing. No family available at this time. CM will continue to follow and assist as needed with discharge planning / needs. DCP- Discharge Planning Updated by [email or web address]: Sujey Riley on 04/30/18 3:[address] CM RECEIVED A CM CONSULT ORDER. THE PATIENT JUST COMPLETED AN OT EVAL. HE WAS VERY SHORT OF BREATH W/ MINIMAL ACTIVITY. HIS NASAL O2 WAS 3.5 LITERS THIS EARLY AM. HE IS PRESENTLY ON 7/L OF NASAL O2. HAS INCREASED RESPIRATORY DISTRESS. PATIENT IS NOT ON OXYGEN AT HOME. HIS WORKS AT [employer]. SHE IS NOT AVAILABLE AT THIS TIME. PATIENT DID NOT WANT TO TELL HE DRINKS 30 PK OF BEER IN 1 1/2 DAYS PER THE NURSE. DISCUSSED INCREASED RESP DISTRESS AND O2 NEEDS W/ TITLE CLERK. SHE WILL DISCUSS ORDERING A PULMONARY CONSULT W/ DR MOSS. PATIENT WILL BE ASSESSED WHEN HE IS LESS SHORT OF BREATH OR IS AT THE BEDSIDE. DCPIA - Discharge Planning Initial Assessment Updated by [email or web address]: Jazz Devine on 05/04/18 2:44 pm * Is the patient Alert and Oriented? Yes * How many steps to enter\exit or inside your home? * PCP Dave * [facility] * Preadmission Environment Home with Family * ADLs Independent * Equipment None * List name and contact numbers for known caregivers / representatives who currently or will assist patient after discharge: Mariam Grimm - - [phone] * Verbal permission to speak to the caregivers and representatives has been obtained from the patient. Yes * Community resources currently utilized None * Additional services required to return to the preadmission environment? No * Can the patient safely return to the preadmission environment? Yes * Has this patient been hospitalized within the prior 30 days at any hospital? No Coverage Notice Reviewer: [id number] Arnold Tomlinson Notice Issued Date-Time: 05/07/2018 12:50 Notice Type: Patient Choice Letter Notice Delivered To: Patient Relationship to Patient: Quality Control Operator Name: Delivery Method: HAND - Hand Delivered Heavenly Days: Prior Verbal Notification: Recipient Understood Notice: Yes Recipient Signature: Yes Med Rec Note Co-signed by Attending: Coverage Notice Comment: ANY Last DP export: 05/07/18 2:50 p Patient Name: MERVAT GRIMM Page 28916 at 1613 All edits/amendments must be made on the electronic document DICTATION DATE: 05/07/18 161 CAR INSPECTOR: ANGELES 05/07/18 1613 RPT#: [id number] DC DATE: STATUS: ADM IN [facility] [address] [place] [address] END OF REPORT
[2018-05-07 17:17] VITALS: BP 148/87
[2018-05-07 20:00] VITALS: BP 156/87
[2018-05-07 22:06] LABS: IMMUNOGLOBULIN E 51 IU/mL (6-495)
--- NOTE | 2018-05-07 22:30 | NUR ---
REPORT RECIEVED AND ROUNDING COMPLETE. PT SITTING UP IN BED WATCHING TV. PT HAS NC ON AND RECIEVING O2 AT 2L. ASSESMENT COMPLETE. PT STATES NO NEEDS AT THIS TIME CALL LIGHT WITHIN REACH.
[2018-05-08] VITALS: BP 145/90
--- NOTE | 2018-05-08 03:46 | NUR ---
PATIENT RESTING COMFORTABLY IN BED. RESPIRATIONS ARE EVEN AND UNALBORED. NO S/S OF DISTRESS. CALL LIGHT WITHIN REACH. WILL CPOC.
[2018-05-08 04:20] VITALS: BP 139/79
--- NOTE | 2018-05-08 04:55 | NUR ---
PT SITTING UP IN BED. PT ASKED IF HE COULD GET SOME LOTION FOR HIS DRY SKIN. INSTRUMENTATION ENGINEERING TECHNICIAN GAVE HIM SOME. NO OTHER NEEDS AT THIS TIME CALL LIGHT WITHIN REACH.
[2018-05-08 05:05] LABS: BASOPHILS 0.1 % (0-2); EOSINOPHILS 1.3 % (0-7); HEMATOCRIT 33.3 % (42.0-54.0); HEMOGLOBIN 11.3 g/dL (13.5-17.5); IMMATURE GRANULOCYTES 0.8 % (0-5); LYMPHOCYTES 12.9 % (15-50); MCH 31.2 pg (26.0-34.0); MCHC 33.9 g/dL (31.0-37.0); MEAN PLATELET VOLUME 10.9 fL (7.4-10.4); MONOCYTES 10.1 % (2-11); NEUTROPHILS 74.8 % (40-80); PLATELET COUNT 365 10x3/uL (130-400); RBC 3.62 10x6/uL (4.20-6.10); RDW 14.2 % (11.5-14.5); WBC 15.8 10x3/uL (4.8-10.8)
[2018-05-08 05:25] LABS: CALC OSMOLALITY 271 mosm/kg (275-300); CALCIUM 8.3 mg/dL (8.5-10.1); CARBON DIOXIDE 37.3 mmol/L (21.0-32.0); CHLORIDE - SERUM 97 mmol/L (98-107); CREATININE - SERUM 0.6 mg/dL (0.6-1.3); GLUCOSE 80 mg/dL (74-106); POTASSIUM - SERUM 3.9 mmol/L (3.5-5.1); SODIUM 136 mmol/L (136-145); UREA NITROGEN 15 mg/dL (7-18); eGFR NON AFRICAN AMERICAN > 90 mL/min (90-120)
--- NOTE | 2018-05-08 08:24 | NUR ---
AWAKE SITTING UP IN BED. WILL CONTINUE TO MONITOR.
[2018-05-08 08:35] VITALS: BP 154/71
[2018-05-08 12:15] VITALS: BP 128/80
[2018-05-08] MEDS ORDERED: SINGULAIR10 MG PO (12:27)
[2018-05-08] MEDS ORDERED: Tessalon Perle PO (12:28)
[2018-05-08] MEDS ORDERED: TESSALON PERLE100 MG PO (12:30)
[2018-05-08] MEDS ORDERED: PREDNISONE10 MG PO (12:32)
[2018-05-08] MEDS ORDERED: ELIQUIS5 MG PO (12:32)
[2018-05-08] MEDS ORDERED: IPRAT-ALBUT 0.5-3 ML UPD (14:09)
--- NOTE | 2018-05-08 14:58 | NUR ---
IV DC WITH CATH TIP INTACT. DC INSTRUCTIONS GIVEN TO PT AND . BOTH UNDERSTAND.
--- NOTE | 2018-05-08 15:01 | NUR ---
WC HERE AND DISCHARGE HOME.
--- NOTE | 2018-05-08 16:14 | MORECARE ---
CASE MANAGEMENT DISCHARGE SUMMARY PATIENT: MERVAT GRIMM UNIT: [id number] ADM DATE: 04/28/18 AGE: 62 : 55 SEX: M ROOM/BED: D.2140 AUTHOR: CHERYL,DOC PHYSICIAN: REFERRING PHYSICIAN: CRESCENCIO BHANDARI MD DATE OF SERVICE: 05/08/18 Discharge Plan Patient Name: MERVAT GRIMM Facility: [facility]:[place] : 1955 Planned Disposition: Home Anticipated Discharge Date: 05/08/18 Discharge Date: 05/08/2018 Expected LOS: 10 Initial Reviewer: [id number] Initial Review Date: 04/27/2018 Generated: 05/08/18 5:13 pm Comments DCP- Discharge Planning Updated by [email or web address]: Jadon Tomlinson on 05/07/18 3:[address] Patient Name: MERVAT GRIMM Encounter No: [id number] : 1955 Primary Insurance: [employer] [facility] Anticipated DC Date: 05-08-2018 Planned Disposition: Home DCP follow-up note: CM RECEIVED ORDER FOR HOME OXYGEN AND NEBULIZER. CM MET WITH PT IN ROOM TO DISCUSS DISCHARGE NEEDS AND PLANNING. CM DISCUSSED AVAILABILITY OF HOME HEALTH, REHAB SERVICES AND MEDICAL EQUIPMENT. PT DENIES DISCHARGE NEEDS. SPOUSE TO TRANSPORT HOME AT DISCHARGE. MEDICAL EQUIPMENT PROVIDER LISTING PROVIDED, PT SIGNED CHOICE FOR ANY COMPANY, WANTS THEM TO BE IN HIS INSURANCE NETWORK. CM CALLED [facility], , SPOKE TO SHANIA, PROVIDED REFERRAL INFORMATION. MARGIE WILL PROCESS FOR OXYGEN AND NEBULIZER. CM FAXED REFERRAL AND SUPPORTING CHART INFORMATION TO [facility], . [facility] WILL CONTACT PT REGARDING ANY OUT OF POCKET EXPENSES FOR MEDICAL EQUIPMENT THAT MAY BE REQUIRED. PT'S CELL PHONE IS [phone]. [facility] WILL DELIVER PORTABLE OXYGEN TO HOSPITAL TOMORROW, 05-08-18, AND WILL ARRANGE HOME DELIVERY OF HOME OXYGEN AND NEXULIZER WHEN PT ARRIVES AT HOME AFTER DISCHARGE. CRISTIAN Haynes DCP- Discharge Planning Updated by [email or web address]: Jazz Devine on 05/04/18 1:[address] Patient Name: MERVAT GRIMM Admission Status: ER Accout number: [id number] Admission Date: 04-28-2018 : 1955 Admission Diagnosis:COUGH Attending: CRESCENCIO BHANDARI Current LOS: 6 Anticipated DC Date: Planned Disposition: Home Primary Insurance: [employer] [facility] Discharge Planning Comments: CM met with patient at bedside after obtaining verbal consent. Patient stated that he lives at home with his and plans to return upon discharge. He denies any medical equipment or home health services prior to admission. He states he has insurance BCBS through his 's employer ([employer]). Patient denies any discharge needs at this time. CM will continue to follow and assist as needed with discharge planning / needs. Airline Operations Agent: Jazz Devine DCP- Discharge Planning Updated by [email or web address]: Jazz Devine on 05/01/18 4:[address] CM unable to do discharge planning assessment due to patients labored breathing. No family available at this time. CM will continue to follow and assist as needed with discharge planning / needs. DCP- Discharge Planning Updated by [id number]: Sujey Riley on 04/30/18 3:[address] CM RECEIVED A CM CONSULT ORDER. THE PATIENT JUST COMPLETED AN OT EVAL. HE WAS VERY SHORT OF BREATH W/ MINIMAL ACTIVITY. HIS NASAL O2 WAS 3.5 LITERS THIS EARLY AM. HE IS PRESENTLY ON 7/L OF NASAL O2. HAS INCREASED RESPIRATORY DISTRESS. PATIENT IS NOT ON OXYGEN AT HOME. HIS WORKS AT [employer]. SHE IS NOT AVAILABLE AT THIS TIME. PATIENT DID NOT WANT TO TELL HE DRINKS 30 PK OF BEER IN 1 1/2 DAYS PER THE NURSE. DISCUSSED INCREASED RESP DISTRESS AND O2 NEEDS W/ SOLUTION LEAD. SHE WILL DISCUSS ORDERING A PULMONARY CONSULT W/ DR MOSS. PATIENT WILL BE ASSESSED WHEN HE IS LESS SHORT OF BREATH OR IS AT THE BEDSIDE. DCPIA - Discharge Planning Initial Assessment Updated by [email or web address]: Jazz Devine on 05/04/18 2:44 pm * Is the patient Alert and Oriented? Yes * How many steps to enter\exit or inside your home? * PCP Dave * [facility] * Preadmission Environment Home with Family * ADLs Independent * Equipment None * List name and contact numbers for known caregivers / representatives who currently or will assist patient after discharge: Mariam Grimm - - [phone] * Verbal permission to speak to the caregivers and representatives has been obtained from the patient. Yes * Community resources currently utilized None * Additional services required to return to the preadmission environment? No * Can the patient safely return to the preadmission environment? Yes * Has this patient been hospitalized within the prior 30 days at any hospital? No Coverage Notice Reviewer: [id number] Arnold Tomlinson Notice Issued Date-Time: 05/07/2018 12:50 Notice Type: Patient Choice Letter Notice Delivered To: Patient Relationship to Patient: Blow Torch Operator Name: Delivery Method: HAND - Hand Delivered Heavenly Days: Prior Verbal Notification: Recipient Understood Notice: Yes Recipient Signature: Yes Med Rec Note Co-signed by Attending: Coverage Notice Comment: ANY Last DP export: 05/07/18 3:13 p Patient Name: MERVAT GRIMM Page 16696 at 1614 All edits/amendments must be made on the electronic document DICTATION DATE: 05/08/181612 MANAGER CLINICAL RESEARCH: ANGELES 05/08/181612 RPT#: [id number] DC DATE:05/08/18 STATUS: DIS IN [facility] [address] [place] [address] END OF REPORT
== END 2018-05-08 15:10 | disposition home or self-care (01) | DRG 177 ==
LOC: D.ER 14:40 → D.ICU 18:42 → D.M2 18:42 → D.MS 18:42 → D.ICU 05-01 12:43 → D.M2 05-04 17:53
PROVIDERS: Family Medicine; Internal Medicine Nephrology; Internal Medicine Pulmonary Disease; ADMIT Emergency Medicine; ATTEND Emergency Medicine
PROC: 5A09457 Assistance with Respiratory Ventilation, 24-96 Consecutive Hours, Continuous Positive Airway Pressure (ICD-10-PCS; principal; 2018-05-02)
DX: J10.08 Influenza due to other identified influenza virus with other specified pneumonia (principal); J96.01 Acute respiratory failure with hypoxia; J15.6 Pneumonia due to other Gram-negative bacteria; E43 Unspecified severe protein-calorie malnutrition; E87.1 Hypo-osmolality and hyponatremia; E87.0 Hyperosmolality and hypernatremia; F17.213 Nicotine dependence, cigarettes, with withdrawal; I82.409 Acute embolism and thrombosis of unspecified deep veins of unspecified lower extremity; R18.8 Other ascites; J90 Pleural effusion, not elsewhere classified; J81.1 Chronic pulmonary edema; Z68.1 Body mass index [BMI] 19.9 or less, adult; J44.1 Chronic obstructive pulmonary disease with (acute) exacerbation; I10 Essential (primary) hypertension; K21.9 Gastro-esophageal reflux disease without esophagitis; M19.90 Unspecified osteoarthritis, unspecified site; N40.0 Benign prostatic hyperplasia without lower urinary tract symptoms; E87.6 Hypokalemia; Z72.89 Other problems related to lifestyle; J44.0 Chronic obstructive pulmonary disease with (acute) lower respiratory infection; N32.89 Other specified disorders of bladder

== ENCOUNTER → 2018-09-12 07:22 | Outpatient (CLI) | payer BC ==
[2018-04-30 13:08] VITALS: BMI 17.4
[~2018-09-12 07:22] MED LIST changes: +ELIQUIS5 MG PO; +IPRAT-ALBUT 0.5-3 ML UPD; +NEXIUM20 MG PO; +PREDNISONE10 MG PO; +SINGULAIR10 MG PO; +TESSALON PERLE100 MG PO; +Tessalon Perle PO; +VITAMIN D5000 UNIT PO
== END | disposition home or self-care (01) ==
LOC: D.RT 07:22
PROVIDERS: ATTEND Internal Medicine Pulmonary Disease
DX: Z86.718 Personal history of other venous thrombosis and embolism (principal); J44.9 Chronic obstructive pulmonary disease, unspecified; J95.851 Ventilator associated pneumonia

== ENCOUNTER 2019-04-29 13:30 | Inpatient (IN) | payer BC ==
[~2019-04-29] VITALS: Ht 167.6 cm; Wt 54.4 kg
--- NOTE | 2019-04-29 17:30 | NUR ---
FROM THE CLINIC, 20 G IV STARTED TO THE RIGHT ARM. HIS IS AT THE BEDSIDE. RATES HIS PAIN 2/10. NPO.
[2019-04-29 17:45] LABS: BASOPHILS 0.5 % (0-2); EOSINOPHILS 1.5 % (0-7); HEMATOCRIT 38.6 % (42.0-54.0); HEMOGLOBIN 13.6 g/dL (13.5-17.5); IMMATURE GRANULOCYTES 0.2 % (0-5); LYMPHOCYTES 14.3 % (15-50); MCH 32.2 pg (26.0-34.0); MCHC 35.2 g/dL (31.0-37.0); MCV 91.3 fL (80.0-100.0); MEAN PLATELET VOLUME 10.7 fL (7.4-10.4); MONOCYTES 16.5 % (2-11); RBC 4.23 10x6/uL (4.20-6.10); RDW 13.7 % (11.5-14.5); WBC 13.3 10x3/uL (4.8-10.8)
[2019-04-29] MEDS ORDERED: CARBIDOPA-LEVO1 EACH PO (17:46)
[2019-04-29] MEDS ORDERED: SINEMET 10-1001 EACH (17:47)
[2019-04-29] MEDS ORDERED: SPIRIVA RESPIMAT4 G1 IH (17:49)
[2019-04-29] MEDS ORDERED: SPIRIVA RESPIMAT4 GM (17:50)
[2019-04-29 18:15] LABS: PLATELET COUNT 278 10x3/uL (130-400)
[2019-04-29 18:21] LABS: CALC OSMOLALITY 261 mosm/kg (275-300); CHLORIDE - SERUM 92 mmol/L (98-107); CREATININE - SERUM 0.8 mg/dL (0.6-1.3); GLUCOSE 114 mg/dL (74-106); POTASSIUM - SERUM 3.8 mmol/L (3.5-5.1); SODIUM 131 mmol/L (136-145); UREA NITROGEN 7 mg/dL (7-18); eGFR NON AFRICAN AMERICAN > 90 mL/min (90-120)
[2019-04-29 18:25] LABS: ALBUMIN 3.4 g/dL (3.4-5.0); ALKALINE PHOSPHATASE 65 U/L (30-120); ALT (SGPT) 31 U/L (10-68); BILIRUBIN - DIRECT 0.26 mg/dL (0.00-0.30); BILIRUBIN - INDIRECT 0.59 mg/dL (0.00-1.00); BILIRUBIN - TOTAL 0.85 mg/dL (0.2-1.3); PROTEIN - SERUM 6.6 g/dL (6.4-8.2)
[2019-04-29 18:48] VITALS: BP 162/92
[2019-04-29 20:00] VITALS: BP 125/81
--- NOTE | 2019-04-29 20:00 | NUR ---
A&O X 4. SUPINE IN BED, DENIES PAIN/DISCOMFORT. VERBALIZED UNDERSTANDING OF NPO STATUS. WILL CONTINUE TO MONITOR.
[2019-04-30] VITALS: BP 112/76
[2019-04-30 04:00] VITALS: BP 134/88
--- NOTE | 2019-04-30 05:44 | NUR ---
I have reviewed this patient and I concur with the Shift Assessment completed by the Licensed Practical Nurse today this shift.
[2019-04-30 06:03] LABS: APTT 31.2 SECONDS (22.8-39.4); INR 1.02 (0.85-1.17); PROTIME 13.4 SECONDS (11.6-15.0)
[2019-04-30 06:28] LABS: ALBUMIN 2.8 g/dL (3.4-5.0); ALKALINE PHOSPHATASE 56 U/L (30-120); ALT (SGPT) 27 U/L (10-68); BILIRUBIN - DIRECT 0.21 mg/dL (0.00-0.30); BILIRUBIN - INDIRECT 0.77 mg/dL (0.00-1.00); BILIRUBIN - TOTAL 0.98 mg/dL (0.2-1.3); CALC OSMOLALITY 263 mosm/kg (275-300); CALCIUM 8.7 mg/dL (8.5-10.1); CARBON DIOXIDE 30.7 mmol/L (21.0-32.0); CHLORIDE - SERUM 97 mmol/L (98-107); CREATININE - SERUM 0.8 mg/dL (0.6-1.3); GLUCOSE 93 mg/dL (74-106); MAGNESIUM - SERUM 2.1 mg/dL (1.8-2.4); PHOSPHOROUS 3.8 mg/dL (2.5-4.9); POTASSIUM - SERUM 3.9 mmol/L (3.5-5.1); PROTEIN - SERUM 6.6 g/dL (6.4-8.2); SODIUM 133 mmol/L (136-145); UREA NITROGEN 7 mg/dL (7-18); eGFR NON AFRICAN AMERICAN > 90 mL/min (90-120)
[2019-04-30 06:47] LABS: BASOPHILS 0.6 % (0-2); EOSINOPHILS 3.3 % (0-7); HEMATOCRIT 36.8 % (42.0-54.0); HEMOGLOBIN 12.8 g/dL (13.5-17.5); IMMATURE GRANULOCYTES 0.3 % (0-5); LYMPHOCYTES 14.4 % (15-50); MCH 31.7 pg (26.0-34.0); MCHC 34.8 g/dL (31.0-37.0); MCV 91.1 fL (80.0-100.0); MEAN PLATELET VOLUME 11.6 fL (7.4-10.4); MONOCYTES 16.5 % (2-11); NEUTROPHILS 64.9 % (40-80); PLATELET COUNT 318 10x3/uL (130-400); RBC 4.04 10x6/uL (4.20-6.10); RDW 13.6 % (11.5-14.5)
--- NOTE | 2019-04-30 08:16 | NUR ---
PATIENT RECIEVED RESTING IN BED, ALERT AND ORIENTED, DENIES PAIN OR NAUSEA AT THIS TIME. NPO FOR POSSIBLE PROCEDURE TODAY. CL IN REACH
[2019-04-30 10:07] VITALS: BP 138/76
[2019-04-30 14:26] VITALS: Ht 167.6 cm; Wt 54.4 kg
[2019-04-30 14:39] VITALS: BP 145/92
[2019-04-30 17:25] VITALS: BP 116/76
--- NOTE | 2019-04-30 19:50 | NUR ---
A&O X 4, SUPINE IN BED, DENIES PAIN. NO NEEDS VOICED AT THIS TIME.
[2019-04-30 21:28] VITALS: BP 155/95
[2019-05-01 01:59] VITALS: BP 139/83
[2019-05-01 05:08] LABS: BASOPHILS 0.6 % (0-2); EOSINOPHILS 5.6 % (0-7); HEMATOCRIT 36.5 % (42.0-54.0); HEMOGLOBIN 12.6 g/dL (13.5-17.5); IMMATURE GRANULOCYTES 0.4 % (0-5); LYMPHOCYTES 12.3 % (15-50); MCH 31.4 pg (26.0-34.0); MCHC 34.5 g/dL (31.0-37.0); MEAN PLATELET VOLUME 11.2 fL (7.4-10.4); MONOCYTES 16.5 % (2-11); NEUTROPHILS 64.6 % (40-80); PLATELET COUNT 335 10x3/uL (130-400); RBC 4.01 10x6/uL (4.20-6.10); RDW 13.3 % (11.5-14.5); WBC 8.3 10x3/uL (4.8-10.8)
--- NOTE | 2019-05-01 05:12 | NUR ---
I have reviewed this patient and I concur with the Shift Assessment completed by the Licensed Practical Nurse today this shift.
[2019-05-01 05:21] LABS: ANION GAP 12.7 mmol/L (8-16); CALCIUM 8.6 mg/dL (8.5-10.1); CARBON DIOXIDE 26.8 mmol/L (21.0-32.0); MAGNESIUM - SERUM 1.9 mg/dL (1.8-2.4); PHOSPHOROUS 4.2 mg/dL (2.5-4.9); POTASSIUM - SERUM 3.5 mmol/L (3.5-5.1)
[2019-05-01 05:28] LABS: CREATININE - SERUM 1.2 mg/dL (0.6-1.3)
[2019-05-01 06:04] VITALS: BP 130/77
[2019-05-01 08:00] VITALS: BP 138/84
--- NOTE | 2019-05-01 09:15 | NUR ---
TO OR VIA BED
[2019-05-01] MEDS ORDERED: HYDROCODON-ACE1 EAC7 PO (10:32)
[2019-05-01 11:22] VITALS: BP 147/91
[2019-05-01 17:09] VITALS: BP 113/71
--- NOTE | 2019-05-01 17:53 | NUR ---
IV DCD WITH CATH TIP INTACTX2. DISCHARGE INSTRUCTIONS,STATES UNDERSTANDING. LEFT UNIT VIA WHEELCHAIR FOR TRANSPORT HOME
== END 2019-05-01 17:54 | disposition home or self-care (01) | DRG 418 ==
LOC: D.CT 13:30 → D.MS 17:01
PROVIDERS: Family Medicine; Surgery; ADMIT Internal Medicine Nephrology; ATTEND Internal Medicine Nephrology
PROC: 0FT44ZZ Resection of Gallbladder, Percutaneous Endoscopic Approach (ICD-10-PCS; principal; 2019-05-01 15:15)
DX: K81.0 Acute cholecystitis (principal); E87.1 Hypo-osmolality and hyponatremia; I50.32 Chronic diastolic (congestive) heart failure; G20 Parkinson's disease; K21.9 Gastro-esophageal reflux disease without esophagitis; M19.90 Unspecified osteoarthritis, unspecified site; I11.0 Hypertensive heart disease with heart failure

== ENCOUNTER → 2019-05-14 07:17 | Outpatient (CLI) | payer BC ==
[2019-04-30 14:26] VITALS: BMI 19.3
[~2019-05-14 07:17] MED LIST changes: +CARBIDOPA-LEVO1 EACH PO; +HYDROCODON-ACE1 EAC7 PO; +SINEMET 10-1001 EACH; +SPIRIVA RESPIMAT4 G1 IH; +SPIRIVA RESPIMAT4 GM
== END | disposition home or self-care (01) ==
LOC: D.MRI 07:17
PROVIDERS: ATTEND Family Medicine
DX: R25.1 Tremor, unspecified (principal)